=== PATIENT | male | born 1945 | race Caucasian/White ===

== ENCOUNTER 2016-07-24 10:46 | Inpatient (IN) | payer OTHER ==
[2016-06-13 10:24] VITALS: Ht 177.8 cm; Wt 104.0 kg
--- NOTE | 2016-06-13 11:07 | PAT Medication Instructions ---
Service Date Jun 13, 2016. Current Home Medication List Amlodipine (Norvasc), 5 MG PO QAM Ascorbic Acid (Vitamin C), 1,000 MG PO QAM Aspirin (Aspirin Tab-Chewable *), 1 TAB PO QAM Atorvastatin (Lipitor), 20 MG PO QAM Cholecalciferol (D 1000), 8,000 PO QAM Hydrochlorothiazide (Hctz), 25 MG PO QAM Multivitamin (Multivitamin), 1 TAB PO QAM Nutritional Supplements (Glucosamine Complex), 3 TAB PO QAM Psyllium (Metamucil Fiber), Unknown Dose PO UD PRN for QAM Medication Instructions For Your Scheduled Surgery - Hold the following medications 7-10 days prior to surgery: Nutritional Supplements (Glucosamine Complex), 3 TAB PO QAM - Hold the following medications the morning of surgery: Psyllium (Metamucil Fiber), Unknown Dose PO UD PRN for QAM Hydrochlorothiazide (Hctz), 25 MG PO QAM Multivitamin (Multivitamin), 1 TAB PO QAM Cholecalciferol (D 1000), 8,000 PO QAM Ascorbic Acid (Vitamin C), 1,000 MG PO QAM - Take the following medications the morning of surgery with a sip of water: Atorvastatin (Lipitor), 20 MG PO QAM Aspirin (Aspirin Tab-Chewable *), 1 TAB PO QAM Amlodipine (Norvasc), 5 MG PO QAM If you have any questions please call us at [phone] or [phone] ( Pat) or [phone]
--- NOTE | 2016-06-13 11:29 | DIAGNOSTIC IMAGING REPORT ---
CHEST 2 VIEWS ROUTINE CLINICAL HISTORY: PAT preoperative evaluation COMPARISON STUDY: 09/29/2013 FINDINGS: The bones soft tissues and hemidiaphragms are normal. The cardiomediastinal silhouette is normal. The lungs are clear. The pulmonary vasculature is normal. IMPRESSION: Negative chest. Electronically signed by: Gregory Donnelly M.D. 06/13/2016 11:27 AM Dictated Date/Time: 06/13/2016 11:26 AM
[2016-06-13 11:57] LABS: BASO % 0.7 %; BASO ABS # 0.04 K/uL (0-0.2); COMPLETE YES; EOS % 9.9 %; HEMATOCRIT 40.7 % (42-52); IG% 0.2 %; LYMPH % 30.9 %; LYMPH ABS # 1.75 K/uL (1.2-3.4); MEAN CELL VOLUME 89.5 fL (80-100); MEAN CORPUSCULAR HEMOGLOBIN 31.9 pg (25-34); MEAN CORPUSCULAR HGB CONC 35.6 g/dl (32-36); MEAN PLATELET VOLUME 9.8 fL (7.4-10.4); NEUT % 50.3 %; PLATELET COUNT 226 K/uL (130-400); RED BLOOD COUNT 4.55 M/uL (4.7-6.1); WHITE BLOOD COUNT 5.66 K/uL (4.8-10.8)
[2016-06-13 12:08] LABS: PROTHROMBIN TIME (PATIENT) 10.9 SECONDS (9.0-12.0)
[2016-06-13 12:57] LABS: BLOOD UREA NITROGEN 14 mg/dl (7-18); BUN/CREATININE RATIO 16.1 (10-20); C-REACTIVE PROTEIN < 0.29 mg/dl (0-0.29); CARBON DIOXIDE 29 mmol/L (21-32); CHLORIDE 102 mmol/L (98-107); CREATININE 0.85 mg/dl (0.60-1.40); GLUCOSE 110 mg/dl (70-99); POTASSIUM 3.7 mmol/L (3.5-5.1); SODIUM 137 mmol/L (136-145)
[2016-06-13 13:30] LABS: CALCIUM 9.1 mg/dl (8.5-10.1)
--- NOTE | 2016-07-20 19:50 | HISTORY & PHYSICAL EXAMINATION ---
DATE OF ADMISSION: 07/24/2016 CHIEF COMPLAINT: Bilateral knee pain, left side greater than right. HISTORY OF PRESENT ILLNESS: The patient is a 71-year-old gentleman, who is well known to me from a previous right hip replacement done in 2012. He has got a long history of bilateral knee pain and discomfort, left side greater than right. He has just been putting up with this over the years. He has been through extensive conservative treatment including various medicines and injections. This has become less successful over time. He has just been putting up with the pain. He has become more disabled by the pain. Both the knees hurt, the left side is a bit worse than the right; it is limiting his activities. He would like to proceed with a left knee replacement. PAST MEDICAL HISTORY: Significant for: 1. Hypertension. 2. Elevated cholesterol. 3. Osteoarthritis. 4. Basal cell skin cancer. PREVIOUS SURGICAL HISTORY: Right total hip replacement on 01/07/2013. ALLERGIES: None. CURRENT MEDICINES: Include: 1. Atorvastatin 20 mg a day. 2. Amlodipine 5 mg a day. 3. Hydrochlorothiazide SOCIAL HISTORY: A 71-year-old male patient, . He is from [place]. FAMILY HISTORY: Noncontributory. REVIEW OF SYSTEMS: Negative for diabetes, neurologic problems, vascular problems or bleeding disorders. He denies any chest pain or shortness of breath. No history of DVT or PE. PHYSICAL EXAMINATION: GENERAL: Reveals a healthy and pleasant elderly male. He looks to be in good health. HEENT: Benign. NECK: Supple. No lymphadenopathy. LUNGS: Clear to auscultation. HEART: Has a regular rate and rhythm. ABDOMEN: Soft, nontender and nondistended. EXTREMITIES: Grossly neurovascularly intact except as follows: Examination of the left knee reveals patient walks with a slight valgus alignment to his knee. Has small knee effusion. He has got slight flexion contracture of about 10 degrees. He can flex to 110. No instability. X-RAYS: X-rays of the left knee were reviewed. It shows advanced left knee DJD. He has got complete loss of his lateral joint space. He has got valgus alignment with subchondral sclerosis. He has got osteophytes in all 3 compartments. ASSESSMENT: A 71-year-old gentleman who is status post a right total hip replacement done 4 years ago, doing well with advanced bilateral knee degenerative joint disease, left side more symptomatic than the right. He has failed conservative treatment and would like to proceed with knee replacement. PLAN: We will take him to the operating room and do a left total knee replacement. The risks and benefits of this procedure were explained to the patient including but not limited to DVT, PE, , infection, neurological injury, neurovascular injury, bleeding problems, pain, limited range of motion, stiffness, failure to relieve symptoms, incomplete relief of symptoms, need for further surgery in the future, fracture, leg length inequality, nerve palsy, need for revision surgery, incomplete relief of symptoms, etc. The patient understands and desires to proceed. Informed consent was obtained. The patient had a preoperative workup. Chest x-ray was normal. Labs were normal. EKG was normal. He is planning to be discharged to home using [facility] home health program. TONIE
[~2016-07-24] VITALS: Ht 177.8 cm; Wt 104.0 kg
[2016-07-24] VITALS (8 sets, daily range): BP systolic 91–157; BP diastolic 56–92; PULSE 55–81; TEMP 36.4–36.9; O2SAT 96–100
[~2016-07-24 10:46] MED LIST: ACETAMINOPHEN 500 MG TAB PO SCH; AMLO-110 PO; ASCA500 PO; ASPCH81 PO; ATOR-22 PO; BUPIVACAINE 0.25% 30 ML VIAL ONE; BUPIVACAINE 0.5 % 5 MG/1 ML PF 10ML VIAL ONE; BUPIVACAINE LIPOSOME 266 MG, BUPIVACAINE/EPINEPHRINE INJ 50 ML, SODIUM CHLORIDE 0.9% PF... INFIL SCH; CEFAZOLIN 2000 MG/60 ML D5W 60 ML IV SCH; CHOL100041 PO; FAMOTIDINE 20 MG TAB PO SCH; GABAPENTIN 300 MG CAP PO SCH; HYDR25TA4 PO; LACTATED RINGER'S 1000ML 1,000 ML IV SCH; LACTATED RINGER'S 1000ML 500 ML IV ONE; LACTATED RINGER'S 1000ML IV SCH; METOCLOPRAMIDE HCL 10 MG TAB PO SCH; MULT-506 PO; NUTRTAB48 PO; PSYL58.636 PO; SCOPOLAMINE 1.5 MG TDSY TD SCH; TRANEXAMIC ACID INJ 1,000 MG in SODIUM CHLORIDE 0.9% 100ML 100 ML IV SCH
--- NOTE | 2016-07-24 11:11 | History & Physical Bridge Note ---
H&P Re-Evaluation Bridge Note: I have examined the patient, reviewed the History & Physical and in the interval since the performance of the History & Physical I have noted the following changes of clinical significance: No changes noted
[2016-07-24] MEDS ORDERED: ROPIVACAINE 0.5% 5 MG/ML 30 ML VIAL ONE (11:21)
[2016-07-24] MEDS ORDERED: MIDAZOLAM HCL 1 MG/ML 2ML VIAL ONE (12:24)
[2016-07-24] MEDS ORDERED: BUPIVACAINE/EPINEPHRINE 0.25% 1:200,000 30 ML VIAL ONE (12:49)
[2016-07-24] MEDS ORDERED: BUPIVACAINE LIPOSOME 1/3% 266 MG/20 ML VIAL INFIL ONE (12:49)
[2016-07-24] MEDS ORDERED: BACITRACIN 50000 UNIT VIAL ONE (12:49)
[2016-07-24] MEDS ORDERED: SODIUM CHLORIDE 0.9% PF 50 ML VIAL ONE (12:49)
[2016-07-24] MEDS ORDERED: ONDANSETRON INJ 2 MG/ML 2 ML VIAL IV PRN ×2 (13:30→15:00)
[2016-07-24] MEDS ORDERED: HYDROmorphone INJ 2 MG/ML SYR/VIAL IV PRN (13:30)
[2016-07-24] MEDS ORDERED: PHENYLEPHRINE 100MCG/ML 5ML SYR IV PRN (13:30)
[2016-07-24] MEDS ORDERED: EpHEDrine SULFATE INJ 50 MG/ML AMP IV PRN (13:30)
[2016-07-24] MEDS ORDERED: ATROPINE SULFATE 0.1 MG/ML 5ML SYR IV PRN (13:30)
--- NOTE | 2016-07-24 14:52 | [facility] Post Operative Brief Note ---
Immediate Operative Summary Operative Date July 24, 2016. Pre-Operative Diagnosis Advanced bilateral knee degenerative joint disease, left greater than right Post-Operative Diagnosis same as preop Procedure(s) Performed Left Total Knee Arthroplasty, cemented Surgeon Dr. Venkat Sotelo Coordinator Of Health Services Surgeon(s) Pacheco Stephen PA-C Estimated Blood Loss 50 cc Findings Left Knee DJD Fluids (cc crystalloids) 1600 cc Specimens A. Left Knee bone and tissue Drains None Anesthesia Spinal Complication(s) None Disposition Recovery Room / PACU
[2016-07-24] MEDS ORDERED: METOCLOPRAMIDE HCL INJ 5 MG/ML 2 ML VIAL IV PRN (15:00)
[2016-07-24] MEDS ORDERED: BISACODYL 10 MG SUPP PR PRN (15:00)
[2016-07-24] MEDS ORDERED: SILVER SULFADIAZINE 1% CR 50 GM JAR EXT PRN (15:00)
[2016-07-24] MEDS ORDERED: ZOLPIDEM TARTRATE 5 MG TAB PO PRN (15:00)
[2016-07-24] MEDS ORDERED: ALUMINUM/MAGNESIUM/SIMETH (MAALOX MAX) 30 ML UDC PO PRN (15:00)
[2016-07-24] MEDS ORDERED: MAGNESIUM HYDROXIDE SUSP 30 ML UDC PO PRN (15:00)
[2016-07-24] MEDS ORDERED: TAMSULOSIN HCL 0.4 MG CAP PO PRN (15:00)
--- NOTE | 2016-07-24 15:15 | DIAGNOSTIC IMAGING REPORT ---
LEFT KNEE 2 VIEWS History: Left total knee arthroplasty. Degenerative arthritis. Postop. FINDINGS: The patient is status post a left total knee arthroplasty. The hardware is intact. No fracture or dislocation. Skin jeramie are in place. IMPRESSION: Left total knee arthroplasty. No evidence for hardware complication. Electronically signed by: Felipe Bocanegra M.D. 07/24/2016 3:14 PM Dictated Date/Time: 07/24/2016 3:13 PM
[2016-07-24] MEDS ORDERED: LIDOCAINE HCL 2% 2 ML VIAL (20MG/ML) ONE (15:40)
[2016-07-24] MEDS ORDERED: PROPOFOL IV EMULSION 10 MG/ML 20 ML VIAL IV ONE (15:40)
[2016-07-24] MEDS ORDERED: FENTANYL CITRATE INJ 50 MCG/1 ML 2 ML VIAL ONE (15:40)
[2016-07-24] MEDS: CHECK SCOPOLAMINE PATCH PLACEMENT SCH (16:25)
--- NOTE | 2016-07-24 16:44 | Anesthesiology Progress Note ---
Anesthesia Post Op Note Date & Time July 24, 2016 at 16:44 Vital Signs Pain Intensity: 0 Vital Signs Past 12 Hours Date Time Temp Pulse Resp B/P Pulse Ox O2 Delivery O2 Flow Rate FiO2 07/24/16 16:00 58 16 111/66 100 Nasal Cannula 2 07/24/16 15:45 58 16 123/72 98 Nasal Cannula 2 07/24/16 15:35 36.6 60 16 124/79 98 Nasal Cannula 2 07/24/16 15:25 72 18 120/71 100 Nasal Cannula 2 07/24/16 15:15 71 18 123/66 100 Nasal Cannula 2 07/24/16 15:05 36.5 69 18 119/69 98 Nasal Cannula 2 07/24/16 14:55 36.5 76 16 119/68 98 Mask 10 07/24/16 11:28 99 Room Air 07/24/16 11:25 36.9 81 18 157/92 Notes Mental Status: alert / awake / arousable, participated in evaluation Pt Amnestic to Procedure: Yes Nausea / Vomiting: adequately controlled Pain: adequately controlled Airway Patency, RR, SpO2: stable & adequate BP & HR: stable & adequate Hydration State: stable & adequate Anesthetic Complications: no major complications apparent
[2016-07-24] MEDS: D5W AND 1/2NSS + 20MEQ KCL 1,000 ML IV SCH (17:15)
[2016-07-24] MEDS: KETOROLAC TROMETHAMINE 15 MG/ML VIAL IV. SCH (17:44)
[2016-07-24] MEDS: FERROUS GLUCONATE 324 MG TAB PO SCH (17:44)
--- NOTE | 2016-07-24 18:36 | OPERATIVE REPORT ---
DATE OF OPERATION: 07/24/2016 SURGEON: Venkat Sotelo MD MATE FIRST: AGUSTÍN Johnson PREOPERATIVE DIAGNOSIS: Left knee degenerative joint disease. POSTOPERATIVE DIAGNOSIS: Same. PROCEDURE PERFORMED: Left cemented posterior stabilized total knee arthroplasty. COMPLICATIONS: None. ESTIMATED BLOOD LOSS: 50 mL. FLUID REPLACEMENT: 1600 mL crystalloid fluid replacement. ANESTHESIA: Spinal with adductor canal block. DRAINS: None. SPECIMENS: Left knee sent for pathology. TOURNIQUET TIME: 59 minutes at 300 mmHg. OPERATIVE INDICATIONS: The patient is a 71-year-old very active gentleman who has had a long history of knee problems. He underwent a right hip replacement several years ago and has done well from this. He developed increased pain and discomfort in both knees, left side more so than the right. He failed conservative care and it was elected to proceed with left total knee arthroplasty. OPERATIVE FINDINGS: Operative findings revealed advanced left knee DJD. He had grade 4 [id number] disease in all 3 compartments, most severe in the lateral side. He had eburnation of the lateral femoral condyle and lateral tibial plateau. He had more spotty grade 4 changes in the medial side as well as the patellofemoral joint. He had a valgus deformity to his knee. OPERATIVE IMPLANTS: Operative implants consisted of: 1. Biomet Vanguard size 75 left posterior stabilized femoral component. 2. Biomet size 79 tibial tray. 3. A 10-mm posterior stabilized polyethylene insert. 4. A 34 x 8.5 All-Poly patella. OPERATIVE PROCEDURE: The patient was taken to the operating room, identified and placed on the operating table in supine position. All contact areas were appropriately padded. IV antibiotics were provided by the anesthesia team. A spinal anesthetic and adductor canal block had been provided in the holding area. Yañez catheter was placed in sterile fashion. The left thigh tourniquet was then placed and left lower extremity was then prepped and draped in the usual sterile fashion. Left leg was elevated and exsanguinated with Esmarch and tourniquet was placed at 300 mmHg. An anterior approach to the left knee was then performed through a longitudinal incision centered over the patella. Sharp dissection was carried out through the subcutaneous tissues down to the level of the extensor mechanism. A medial parapatellar arthrotomy incision was made. Subperiosteal dissection was carried out medially dissected from beneath the patellar tendon. The lateral patellofemoral ligament was released. The patella was everted and the knee was flexed. The osteophytes were taken off the distal femur. The ACL and PCL were then released from the distal femur and the tibia subluxated anteriorly. The external tibial alignment jig was then placed in the anterior face of the tibia and adjusted 12 mm medially. Proximal tibial cut was made to remove about 3-4 mm of bone from the medial side. The tibia was then sized to a size 79. Some osteophytes were taken off medial and posteromedially. Attention was then drawn to the femur. The distal femur was entered with a sharp drill. Intramedullary canal was suctioned. A left 5 degree valgus cutting guide was placed. Distal femoral cutting block was pinned in place. Distal femoral cut was made to take an additional 3 mm of bone off the distal femur. After cutting this, I just starting to get down to the base of the trochlear notch, so I elected to take 2 additional millimeters of bone from the distal femur. The patient also had a preoperative flexion contracture and I felt this would help that as well. The femur was then sized to a size 75. We did downsize this just slightly. The AP cutting block was pinned parallel to the epicondylar axis, which was 6 degrees of external rotation. The anterior cut, anterior chamfer, posterior cut, posterior chamfer cuts were made. Box cutting guide was placed and adjusted slightly lateral. The box cut was made. The knee was flexed. The remnants of the medial and lateral menisci were excised. The osteophytes were taken off the posterior aspect of the femur. A trial femoral component was placed. Tibial tray was pinned in maximum external rotation and the drill and stem punch were used to create defect in proximal tibia for the tibial tray. The knee was then trialed and the 10 mm insert fit most appropriately. Attention was then drawn to the patella. The patella was cleaned of all soft tissues. Patellar thickness measured 23 mm in thickness and was cut down to 14. It was sized to a size 34 patella. Lug holes were drilled for a 34 patella. Lateral osteophyte was removed. Patella button was placed. Knee was taken through range of motion and the patella tracked nicely with no thumbs test. Attention was then drawn toward placement of permanent components. All trial components were removed. A bone plug was placed in the distal femur to limit blood loss. A double batch of Palacos G cement was mixed. A left size 75 posterior stabilized femoral component, size 79 tibial tray, 10 mm posterior stabilized polyethylene insert, and a 34 x 8.5 All-Poly patella were then cemented in place. The knee was brought out into full extension until cement hardened. A final cement check was then performed. Pericapsular tissues were injected with a total of 100 mL of a combination of 20 mL of Exparel, 30 mL of normal saline, and 50 mL of 0.25% Marcaine with epinephrine. The patient did receive 1 gram of tranexamic acid. The tourniquet was then let down for final tourniquet time of 59 minutes. Hemostasis was assured using electrocautery. The wound was once again irrigated. The extensor mechanism was then closed with a combination of #1 PDS suture and #1 Vicryl suture in a [id number] fashion. The extensor mechanism was checked and found to be intact. Subcutaneous tissues were then closed with 2-0 Dexon suture in a buried interrupted fashion. Skin was closed with skin jeramie. The leg was then cleaned and dried and a sterile dressing of Xeroform, 4 x 4, sterile cast padding and Hugo bandage were applied. The patient then transferred to the recovery room in stable condition. The patient tolerated the procedure well with no complications. All needle and sponge counts were correct at the end of the operation. I attest to the content of the Intraoperative Record and any orders documented therein. Any exceptions are noted below. TONIE
[2016-07-24] MEDS ORDERED: TRANEXAMIC ACID INJ 1,000 MG in SODIUM CHLORIDE 0.9% 100ML 100 ML IV SCH (21:00)
[2016-07-24] MEDS: CEFAZOLIN IV 2,000 MG in DEXTROSE 5% 50ML 50 ML IV SCH (21:21)
[2016-07-24] MEDS: DOCUSATE SODIUM 100 MG CAP PO SCH (21:25)
[2016-07-24] MEDS: ASPIRIN 325 MG ECTAB PO SCH (21:25)
[2016-07-24] MEDS: ACETAMINOPHEN 500 MG TAB PO SCH (21:59)
[2016-07-24] MEDS: OXYCODONE HCL IR 5 MG TAB (IMMEDIATE RELEASE) PO PRN (22:01)
[2016-07-25 03:19] VITALS: BP 94/60; PULSE 60; TEMP 36.2; O2SAT 98
[2016-07-25] MEDS: CEFAZOLIN IV 2,000 MG in DEXTROSE 5% 50ML 50 ML IV SCH (05:07)
[2016-07-25] MEDS: ACETAMINOPHEN 500 MG TAB PO SCH ×3 (05:08→21:53)
[2016-07-25] MEDS: KETOROLAC TROMETHAMINE 15 MG/ML VIAL IV. SCH ×5 (05:09→23:39)
[2016-07-25 06:32] LABS: HEMATOCRIT 35.5 % (42-52); MEAN CELL VOLUME 94.2 fL (80-100); MEAN CORPUSCULAR HEMOGLOBIN 31.8 pg (25-34); MEAN CORPUSCULAR HGB CONC 33.8 g/dl (32-36); MEAN PLATELET VOLUME 9.2 fL (7.4-10.4); PLATELET COUNT 202 K/uL (130-400); RED BLOOD COUNT 3.77 M/uL (4.7-6.1); WHITE BLOOD COUNT 10.52 K/uL (4.8-10.8)
[2016-07-25 07:03] LABS: BUN/CREATININE RATIO 16.4 (10-20); CALCIUM 7.8 mg/dl (8.5-10.1); CREATININE 0.89 mg/dl (0.60-1.40); POTASSIUM 4.7 mmol/L (3.5-5.1)
[2016-07-25] MEDS ORDERED: ASPEC325 PO (07:16)
[2016-07-25] MEDS ORDERED: ACET-1138 PO (07:16)
[2016-07-25] MEDS ORDERED: RXC5 PO (07:16)
--- NOTE | 2016-07-25 07:17 | Discharge Instructions ---
Discharge Instructions Date of Service July 25, 2016. Admission Reason for Admission: Left Knee Degenerative Joint Disease Discharge Discharge Diagnosis / Problem: Left Knee REplacement Discharge Goals Goal(s): Decrease discomfort, Improve function, Increase independence, Improve disease control, Therapeutic intervention Activity Recommendations Activity Limitations: per Instructions/Follow-up section Weightbearing Status: Left weightbearing . Instructions / Follow-Up Instructions / Follow-Up ACTIVITY RECOMMENDATIONS: Physical Therapy: * You will go to physical therapy three times each week for four to six weeks after your surgery in order to regain your knee range of motion and to retrain your knee to work properly. * It is just as important to make sure you are getting your knee perfectly straight as it is to regain your knee bend. * Taking a pain pill an hour before therapy can help you have a more productive and comfortable therapy session. Home Exercise: * You were shown a series of exercises (heel props, heel slides, etc.) in the hospital. Do these exercises three to four times each day including the exercises you were shown in physical therapy. Walking: * Get up and walk several times each day. For the first four weeks, try not to stand or walk for more than one hour at a time. If you do stand or walk for more than one hour, you will not hurt anything, but your knee and leg will likely swell. * As you feel comfortable, you may change from the walker or crutches to a cane and then to independent walking. MEDICATIONS: New Medicine: * You will likely be taking one or more of these medications: 1. OXYCODONE - A quick and shorter-acting pain medication. Take one to two tablets every four to six hours to lessen your pain. 2. Aspirin - Thins your blood to lessen the chance of forming a blood clot. * The most common side effects of pain medicine and iron are nausea and constipation. If nausea or constipation is too much of a problem or if you have any questions about your new medicines or doses, call [facility] at [phone]. We will try to help you manage these issues. VERY IMPORTANT TO READ AND REVIEW" Pain: * The immediate post-operative period after knee replacement surgery is often quite painful. * You are given a prescription for pain medicine. You should take it, as directed, when you need it, especially before physical therapy and before going to bed. Pain that interferes with sleep is very common and can last several months. * You will likely need pain medicine for the first four to six weeks. It will not stop all of the pain. The pain will lessen and as you feel better, you may change to milder pain medicine such as Tylenol. * The most common side effects of pain medicine are nausea and constipation, so don't take more than you need. SPECIAL CARE INSTRUCTIONS: TEDs/Elastic Stockings: * The white elastic stockings help limit swelling and prevent blood clots from forming in your legs. The more you wear them, the more they work. * Wear them for six weeks after knee replacement surgery and four weeks after partial knee replacement. Prevention of Infection: * Take antibiotics one hour before any dental cleaning, dental work, urological procedure, gastrointestinal procedure or any invasive surgery in order to prevent your new joint from getting infected. * You may get the antibiotics from the doctor performing the procedure or you may call our office at before and we will call in a prescription to the pharmacy of your choice. Things to Watch For: * Drainage from the incision site that occurs more than one week after your surgery. * Severely increased knee/leg pain or swelling. * Increased redness at the incision site. * Fever above 102 degrees Fahrenheit. * Unusual chest pain or shortness of breath. * Unusual pain or burning with urination. Call [facility] at with any of the above problems or if you have any questions about your medicines or recovery. FOLLOW UP VISIT: Make an appointment to see your doctor for approximately two weeks after surgery for a progress check and staple removal by calling the office at . Current Hospital Diet Patient's current hospital diet: Regular Diet Discharge Diet Recommended Diet: Regular Diet Procedures Procedures Performed: Left Total Knee Arthroplasty, cemented Pending Studies Studies pending at discharge: no Medical Emergencies . Who to Call and When: Medical Emergencies: If at any time you feel your situation is an emergency, please call [phone] immediately. . Non-Emergent Contact Non-Emergency issues call your: Surgeon . "Provider Documentation" section prepared by Venkat Sotelo. . VTE Core Measure Inpt VTE Proph given/why not?: Other Anticoagulation, T.E.D. Stockings, SCD's
[2016-07-25 07:35] VITALS: BP 118/78; PULSE 68; TEMP 36.5; O2SAT 99
--- NOTE | 2016-07-25 07:49 | PROGRESS NOTE ---
DATE: 07/25/2016 DATE: 07/25/2016. SUBJECTIVE: A 71-year-old gentleman postop day #1 from a left knee replacement. He is doing well. He says he has taken 1 pain pill overnight and that is it. No chest pain or shortness of breath. Not feeling dizzy or lightheaded. OBJECTIVE: VITAL SIGNS: Temperature is 36.2. Vital signs stable. PHYSICAL EXAMINATION: GENERAL: Reveals a healthy, pleasant, middle-aged male. He is lying in bed, looks pretty comfortable. EXTREMITIES: Examination of the left leg reveals the leg to be well aligned. Dressing is clean, dry, and intact. He can dorsiflex and plantarflex his foot appropriately. He is neurologically intact. LABORATORY DATA: Hemoglobin 12.0. Hematocrit 35.5. Electrolytes are pending. ASSESSMENT: A 71-year-old gentleman postop day 1 from left knee replacement, doing pretty well. Pain is controlled. He is neurologically intact. PLAN: 1. DVT prophylaxis including thigh-high TEDs, SCDs, and aspirin twice a day. 2. PT/OT. Weight bear as tolerated. Left total knee protocol. 3. Pain control. Doing well with current pain regimen. 4. Disposition: He is planning to be discharged home with some home once adequately recovered.
[2016-07-25] MEDS: CHECK SCOPOLAMINE PATCH PLACEMENT SCH ×4 (08:08→23:39)
--- NOTE | 2016-07-25 08:15 | Anesthesiology Progress Note ---
Anesthesia Post Op Note Date & Time July 25, 2016 at 08:15 Vital Signs Pain Intensity: 5.0 Vital Signs Past 12 Hours Date Time Temp Pulse Resp B/P Pulse Ox O2 Delivery O2 Flow Rate FiO2 07/25/16 07:35 36.5 68 19 118/78 99 Room Air 07/25/16 03:19 36.2 60 18 94/60 98 Room Air 07/24/16 23:57 Room Air 07/24/16 23:20 36.5 55 18 91/56 96 Room Air 98/61 Notes Mental Status: alert / awake / arousable, participated in evaluation Pt Amnestic to Procedure: Yes Nausea / Vomiting: adequately controlled Pain: adequately controlled Airway Patency, RR, SpO2: stable & adequate BP & HR: stable & adequate Hydration State: stable & adequate Neuraxial Anesthesia: was administered, sensory block resolved Anesthetic Complications: no major complications apparent
[2016-07-25] MEDS: D5W AND 1/2NSS + 20MEQ KCL 1,000 ML IV SCH ×2 (08:33)
[2016-07-25] MEDS: OXYCODONE HCL IR 5 MG TAB (IMMEDIATE RELEASE) PO PRN ×4 (08:34→21:54)
[2016-07-25] MEDS: ATORVASTATIN 20 MG TAB PO SCH (08:34)
[2016-07-25] MEDS: PANTOprazole SOD 40 MG TAB PO SCH (08:34)
[2016-07-25] MEDS: GLUCOSAMINE SULFATE 500 MG CAP PO SCH (08:35)
[2016-07-25] MEDS: DOCUSATE SODIUM 100 MG CAP PO SCH ×2 (08:35→21:52)
[2016-07-25] MEDS: CHOLECALCIFEROL 1000 INTER.UNIT TAB PO SCH (08:35)
[2016-07-25] MEDS: FERROUS GLUCONATE 324 MG TAB PO SCH ×3 (08:35→17:45)
[2016-07-25] MEDS: ASPIRIN 325 MG ECTAB PO SCH ×2 (08:35→21:52)
[2016-07-25] MEDS: ASCORBIC ACID 500 MG TAB PO SCH (08:35)
[2016-07-25] MEDS: AMLODIPINE BESYLATE 5 MG TAB PO SCH (08:36)
[2016-07-25] MEDS: HYDROCHLOROTHIAZIDE 25 MG TAB PO SCH (08:36)
[2016-07-25] MEDS: MULTIVITAMIN TAB PO SCH (08:36)
[2016-07-25] MEDS ORDERED: MULTIVITAMIN TAB PO SCH (09:00)
[2016-07-25 10:51] VITALS: BP 114/68; PULSE 65; TEMP 36.8; O2SAT 98
[2016-07-25 15:26] VITALS: BP 127/78; PULSE 72; TEMP 36.6; O2SAT 97
[2016-07-25 23:20] VITALS: BP 118/72; PULSE 75; TEMP 36.7; O2SAT 92
[2016-07-26] MEDS: KETOROLAC TROMETHAMINE 15 MG/ML VIAL IV. SCH ×2 (05:14→11:56)
[2016-07-26] MEDS: ACETAMINOPHEN 500 MG TAB PO SCH (05:15)
[2016-07-26 07:04] VITALS: BP 123/70; PULSE 73; TEMP 36.6; O2SAT 98
--- NOTE | 2016-07-26 07:57 | PROGRESS NOTE ---
DATE: 07/26/2016 SUBJECTIVE: A 71-year-old gentleman postop day #2 from a left knee replacement. He is doing pretty well. He was pretty painful with therapy yesterday. Denies any chest pain or shortness of breath. Not feeling dizzy or lightheaded. OBJECTIVE: VITAL SIGNS: Temperature 36.6. Vital signs stable. GENERAL: Physical examination reveals a healthy, pleasant, middle-aged male. He is sitting up in bed and looks pretty comfortable. LUNGS: Clear to auscultation. HEART: Regular rate and rhythm. ABDOMEN: Soft, nontender, and nondistended. EXTREMITIES: Grossly neurovascularly intact except as follows: Examination of the left lower extremity reveals the dressing to be clean, dry and intact. Leg is well aligned. He can dorsiflex and plantarflex his foot appropriately. He is neurologically intact. ASSESSMENT: A 71-year-old gentleman postop day #2 from a left knee replacement, doing pretty well. Pretty painful with therapy, but doing well otherwise. PLAN: 1. DVT prophylaxis including thigh-high TEDs, SCDs, and aspirin twice a day. 2. PT/OT. Weightbearing as tolerated. Left total knee protocol. 3. Pain control. Doing pretty well with current pain regimen. We will have to increase his dose of meds before therapy. 4. Disposition: Plan to discharge to home with some home health later today.
[2016-07-26] MEDS: FERROUS GLUCONATE 324 MG TAB PO SCH (08:32)
[2016-07-26] MEDS: ASPIRIN 325 MG ECTAB PO SCH (08:33)
[2016-07-26] MEDS: DOCUSATE SODIUM 100 MG CAP PO SCH (08:33)
[2016-07-26] MEDS: HYDROCHLOROTHIAZIDE 25 MG TAB PO SCH (08:34)
[2016-07-26] MEDS: GLUCOSAMINE SULFATE 500 MG CAP PO SCH (08:34)
[2016-07-26] MEDS: ATORVASTATIN 20 MG TAB PO SCH (08:34)
[2016-07-26] MEDS: MULTIVITAMIN TAB PO SCH (08:34)
[2016-07-26] MEDS: PANTOprazole SOD 40 MG TAB PO SCH (08:35)
[2016-07-26] MEDS: ASCORBIC ACID 500 MG TAB PO SCH (08:35)
[2016-07-26] MEDS: AMLODIPINE BESYLATE 5 MG TAB PO SCH (08:35)
[2016-07-26] MEDS: CHOLECALCIFEROL 1000 INTER.UNIT TAB PO SCH (08:36)
[2016-07-26] MEDS: OXYCODONE HCL IR 5 MG TAB (IMMEDIATE RELEASE) PO PRN (08:37)
[2016-07-26 11:44] VITALS: BP 123/70; PULSE 73; TEMP 36.6; O2SAT 98
--- NOTE | 2016-07-30 11:21 | DISCHARGE SUMMARY ---
ADMITTING PHYSICIAN AND SURGEON: Dr. Sotelo. ADMITTING DIAGNOSIS: Left knee degenerative joint disease. SURGERY PERFORMED: Left total knee arthroplasty. SECONDARY DIAGNOSES: Hypertension, elevated cholesterol, osteoarthritis, basal cell skin cancer. CONSULTS: None obtained. HISTORY AND PHYSICAL EXAMINATION: Well documented in the patient's chart. HOSPITAL COURSE: The patient was admitted on 07/24/2016 underwent total knee arthroplasty, tolerated the procedure well. There were no complications. He was transferred to the PACU postoperatively and later to the orthopedic floor for further care. He was given Ancef for antibiotic prophylaxis, LV stockings, SCDs and aspirin for DVT prophylaxis. Hemoglobin, hematocrit and vital signs were monitored during his hospital stay and remained stable, did not require any blood transfusions. There were no complications. By postoperative day 2, he was tolerating a general diet. Pain was controlled with oral pain medicine. He was participating in physical therapy and had no signs or symptoms of deep vein thrombosis. On postop day 2, he was discharged home and set up with home health services, given printed discharge instructions including prescriptions for extra strength Tylenol, aspirin 325 mg b.i.d., oxycodone, continue his home medications with the exception of his home dose of aspirin which was changed. Continue physical therapy, weightbearing as tolerated. LV stockings. Follow up in 10-12 days or sooner if there are any problems or concerns.
== END 2016-07-26 12:30 | disposition home health service (06) | DRG 470 ==
LOC: ENRESERVTM → ENRESERVDT → C.ACU 10:46 → C.3E 11:10
PROVIDERS: ADMIT Orthopaedic Surgery Sports Medicine; ATTEND Orthopaedic Surgery Sports Medicine
PROC: 0SRD0J9 Replacement of Left Knee Joint with Synthetic Substitute, Cemented, Open Approach (ICD-10-PCS; principal; 2016-07-24 13:00)
DX: M17.12 Unilateral primary osteoarthritis, left knee (principal); I10 Essential (primary) hypertension; Z79.899 Other long term (current) drug therapy; Z96.641 Presence of right artificial hip joint

== ENCOUNTER 2018-12-20 10:10 | Observation (INO) ==
[2018-12-09 09:25] LABS: Basophils # (auto) 0.03 K/uL (0-0.2); Basophils % (auto) 0.6 %; Eosinophils # (auto) 0.51 K/uL (0-0.5); Eosinophils % (auto) 9.4 %; Hematocrit (blood only) 40.7 % (42-52); Hemoglobin 13.9 g/dL (14.0-18.0); Immature Granulocytes # (auto) 0.01 K/uL (0.00-0.02); Immature Granulocytes % (auto) 0.2 %; Lymphocytes # (auto) 1.63 K/uL (1.2-3.4); Lymphocytes % (auto) 29.9 %; Mean Corpuscular Hemoglobin 31.8 pg (25-34); Mean Corpuscular Hgb Conc 34.2 g/dL (32-36); Mean Corpuscular Volume 93.1 fL (80-100); Mean Platelet Volume 10.1 fL (7.4-10.4); Monocytes # (auto) 0.48 K/uL (0.11-0.59); Monocytes % (auto) 8.8 %; Neutrophils # (auto) 2.79 K/uL (1.4-6.5); Neutrophils % (auto) 51.1 %; Platelet Count 221 K/uL (130-400); RDW Coefficient of Variation 12.6 % (11.5-14.5); RDW Standard Deviation 42.6 fL (36.4-46.3); Red Blood Count 4.37 M/uL (4.7-6.1); White Blood Count 5.45 K/uL (4.8-10.8)
[2018-12-09 09:37] LABS: BUN Creatinine Ratio 16.3 (10-20); Blood Urea Nitrogen 13 mg/dl (7-18); Calcium 8.9 mg/dl (8.5-10.1); Carbon Dioxide 28 mmol/L (21-32); Chloride 104 mmol/L (98-107); Est GFR (African American) 101.7; Est GFR (Non-African American) 87.7; Glucose 104 mg/dl (70-99); Potassium 3.8 mmol/L (3.5-5.1); Sodium 138 mmol/L (136-145)
[2018-12-09 09:38] LABS: Partial Thromboplastin Time 25.8 Seconds (21.0-31.0); Prothrombin Time 10.5 Seconds (9.0-12.0)
--- NOTE | 2018-12-09 15:48 | Anesthesiology Consultation ---
Date of Service December 09, 2018 Assessment & Plan Chart Review Chart Review: Acceptable Risk for Surgery and Patient NOT seen in Pre Admission Testing Consults Requested none ASA ASA3 Proposed Anesthesia Anesthesia Type: General Anesthesia Line Insertion: Arterial line History Surgery Operation Date: 12/20/18 12:10 Proposed Procedures p L4-L5, L5-S1 Laminectomy, Possible Fusion - Loco Pierce DO Height/Weight Height: 5 ft 9 in Weight: 99.79 kg Allergies Allergy/AdvReac Type Severity Reaction Status Date / Time codeine AdvReac Dizziness Verified 12/09/18 13:58 Medications Home Medications Medication Instructions Recorded Confirmed Last Taken amlodipine 5 mg PO QAM 12/09/18 12/09/18 Unknown ascorbic acid (vitamin C) [Vitamin 500 mg PO QAM 12/09/18 12/09/18 Unknown C] aspirin 81 mg PO QAM 12/09/18 12/09/18 Unknown atorvastatin 20 mg PO QAM 12/09/18 12/09/18 Unknown cholecalciferol (vitamin D3) 8,000 unit PO QAM 12/09/18 12/09/18 Unknown [Vitamin D3] diclofenac sodium 75 mg PO BID 12/09/18 12/09/18 Unknown [id number] borate 1 tab PO QAM 12/09/18 12/09/18 Unknown [[facility]] hydrochlorothiazide 25 mg PO QAM 12/09/18 12/09/18 Unknown multivitamin 1 tab PO QAM 12/09/18 12/09/18 Unknown tizanidine [Zanaflex] 2 mg PO Q8H PRN 12/09/18 12/09/18 Unknown Past Medical History Medical History Degenerative disc disease History of basal cell cancer Hyperlipidemia Hypertension Osteoarthritis Exercise / Class Metabolic Activity III < 4 Walking/Shop/Light housework Past Family History Family History Aunt Family hx of colon cancer Grandfather (Paternal) Family hx of colon cancer Uncle Family hx of colon cancer Father Family hx of colon cancer Past Surgical History Surgical History History of basal cell carcinoma (BCC) excision History of colonoscopy History of left knee replacement History of right hip replacement History of tonsillectomy Past Anesthesia History No Hx of Anesthesia Complications and No Family Hx of Anesthesia Complications History of PONV No Hx of PONV and No Hx of Motion Sickness Social History Smoking Status: Never smoker Do You Dip or Chew Tobacco: No Hx Alcohol Use: Yes Alcohol type: beer and wine alcohol intake frequency: a few times a week Hx Substance Use: No substance use type: does not use Testing Laboratory Results 12/09/18 07:29 12/09/18 07:29 PT 10.5 Seconds (9.0-12.0) 12/09/18 07:29 INR 1.0 (0.9-1.1) 12/09/18 07:29 APTT 25.8 Seconds (21.0-31.0) 12/09/18 07:29 Electrocardiogram Date: 12/09/18 Findings: + NSR @ (at 63) Chest X-Ray Date: 12/09/18 Findings: + NAD
--- NOTE | 2018-12-17 09:39 | History and Physical Report ---
DATE OF ADMISSION: 12/17/2018 CHIEF COMPLAINT: Back pain, leg pain, weakness and falling. HISTORY OF PRESENT ILLNESS: Mr. Mead is delightful. He is 73. He has profound stenosis, large herniation of the spine leading to significant pressure and weakness, particularly L4-L5 and L5-S1. He has no associated fevers, sweats, chills, or bowel or bladder compromise. He has had ongoing difficulty for months, it is worsening over time. He is actually not standing well. PAST MEDICAL HISTORY: High cholesterol, hypertension, skin carcinoma. PAST SURGICAL HISTORY: Hip replacement. SOCIAL HISTORY: . Minimal alcohol. Minimal tobacco. Active lifestyle. REVIEW OF SYSTEMS: Twelve systems reviewed, is negative for fevers, sweats, chills. Ears, nose, and throat negative. No chest pain, palpitations, asthma, wheezing, shortness of breath. No nausea, vomiting. No urgency, frequency. No memory loss, confusion. He has joint pain, weakness and muscle pain. OBJECTIVE: GENERAL: He is 5 feet 10 inches. He is 225 pounds. He is in distress. VITAL SIGNS: Blood pressure 130/80, pulse 80, respirations 16. ABDOMEN: Soft, nontender, good bowel sounds. MUSCULOSKELETAL: He has weakness with dorsiflexion and plantarflexion, gait abnormality and loss of sensation, loss of proprioception strength. PLAN: Includes a laminectomy L4-S1, possible fusion.
[~2018-12-20 10:10] MED LIST changes: -ACETAMINOPHEN 500 MG TAB PO SCH; -AMLO-110 PO; -ASCA500 PO; -ASPCH81 PO; -ATOR-22 PO; -BUPIVACAINE 0.25% 30 ML VIAL ONE; -BUPIVACAINE 0.5 % 5 MG/1 ML PF 10ML VIAL ONE; -BUPIVACAINE LIPOSOME 266 MG, BUPIVACAINE/EPINEPHRINE INJ 50 ML, SODIUM CHLORIDE 0.9% PF... INFIL SCH; -CEFAZOLIN 2000 MG/60 ML D5W 60 ML IV SCH; +CEFAZOLIN 2000MG 2,000 MG/15 ML SYR IV SCH; -CHOL100041 PO; -FAMOTIDINE 20 MG TAB PO SCH; -GABAPENTIN 300 MG CAP PO SCH; -HYDR25TA4 PO; -LACTATED RINGER'S 1000ML 1,000 ML IV SCH; -LACTATED RINGER'S 1000ML 500 ML IV ONE; -LACTATED RINGER'S 1000ML IV SCH; +LR 15ML/HR IV SCH; -METOCLOPRAMIDE HCL 10 MG TAB PO SCH; -MULT-506 PO; -NUTRTAB48 PO; -PSYL58.636 PO; -SCOPOLAMINE 1.5 MG TDSY TD SCH; +SODIUM CHLORIDE 0.9% 1,000 ML IV SCH; -TRANEXAMIC ACID INJ 1,000 MG in SODIUM CHLORIDE 0.9% 100ML 100 ML IV SCH
[2018-12-20] MEDS ORDERED: MIDAZOLAM HCL 1 MG/ML 2ML VIAL ONE (11:09)
[2018-12-20] MEDS ORDERED: PROPOFOL IV EMULSION 10 MG/ML 20 ML VIAL IV ONE (11:09)
[2018-12-20] MEDS ORDERED: ROCURONIUM BROMIDE 10 MG/ML 5 ML VIAL ONE ×2 (11:09→12:30)
[2018-12-20] MEDS ORDERED: LIDOCAINE HCL 2% 2 ML VIAL/AMP(20MG/ML) INFIL ONE (11:09)
[2018-12-20] MEDS ORDERED: NEOSTIGMINE METHYLSULFATE 5 MG/5 ML SYR ONE (11:09)
[2018-12-20] MEDS ORDERED: GLYCOPYRROLATE 0.2 MG/ML VIAL ONE (11:09)
[2018-12-20] MEDS ORDERED: fentaNYL citrate 100 MCG/2 ML VIAL ONE (11:09)
[2018-12-20] MEDS ORDERED: ONDANSETRON INJ 2 MG/ML 2 ML VIAL ONE (11:09)
[2018-12-20] MEDS ORDERED: HYDROmorphone INJ 2 MG/ML SYR/VIAL IV PRN (13:09)
[2018-12-20] MEDS ORDERED: ATROPINE SULFATE 0.1 MG/ML 10ML SYR IV PRN (13:09)
[2018-12-20] MEDS ORDERED: fentaNYL citrate 100 MCG/2 ML VIAL IV PRN (13:09)
[2018-12-20] MEDS ORDERED: ONDANSETRON INJ 2 MG/ML 2 ML VIAL IV PRN ×2 (13:09→17:12)
[2018-12-20] MEDS ORDERED: ePHEDrine sulfate 50 MG/ML AMP IV PRN (13:09)
[2018-12-20] MEDS ORDERED: BACITRACIN INJ 50,000 UNIT VIAL ONE (13:58)
[2018-12-20] MEDS ORDERED: VANCOMYCIN HCL 1000MG/20ML VIAL ONE (13:58)
[2018-12-20] MEDS ORDERED: THROMBIN FOR SOLN 20000 UNIT KIT ONE (13:58)
[2018-12-20] MEDS ORDERED: GELATIN SPONGE SZ 100 ONE (13:58)
[2018-12-20] MEDS ORDERED: BUPIVACAINE/EPINEPHRINE 0.5% MPF 1:200,000 30 ML VIAL ONE (13:58)
--- NOTE | 2018-12-20 14:20 | History & Physical Bridge Note ---
Date of Service December 20, 2018 History & Physical Bridge Note I have examined the patient, reviewed the History & Physical and in the interval since the performance of the History & Physical I have noted the following changes of clinical significance: no changes noted
[2018-12-20] MEDS ORDERED: HYDROmorphone INJ 2 MG/ML SYR/VIAL ONE (14:46)
[2018-12-20] MEDS ORDERED: DEXAMETHASONE SOD INJ 4 MG/ML VIAL ONE (15:30)
[2018-12-20] MEDS ORDERED: ePHEDrine sulfate 50 MG/ML SYR ONE (15:50)
--- NOTE | 2018-12-20 16:16 | Post Operative Brief Note ---
PG Immediate Post Op with CF Date of Surgery December 20, 2018 Pre & Post Diagnosis Operation Date: 12/20/18 12:10 Pre-Op Diagnosis: Disc Herniation, Stenosis, Spondylolisthesis Post-Op Diagnosis: Disc Herniation, Stenosis, Spondylolisthesis I identified the patient and participated in the time-out.: Yes Procedure Operation Date: 12/20/18 12:10 Actual Procedures p L4-L5, L5-S1 Laminectomy(Not Applicable) - Loco Pierce DO Surgeon Loco Pierce DO Genetic Physician ju Estimated Blood Loss 250 Findings Consistent with Post-Op Diagnosis Specimens Specimen Description: None per Surgeon Drains Hemovac Drain (10 fr )
--- NOTE | 2018-12-20 16:44 | Anesthesiology Progress Note ---
Date of Service December 20, 2018 Anesthesia Post Procedure Vital Signs Vital Signs: Temp Pulse Pulse Resp BP BP Pulse Ox 12/20/18 16:35 68 16 106/62 97 12/20/18 16:25 67 16 101/64 100 12/20/18 16:15 36.2 C L 67 16 131/68 100 12/20/18 10:47 36.8 C 79 20 153/79 H 98 Transfer of Care Handoff Completed per policy Notes Mental Status: alert / awake / arousable Patient Amnestic to Procedure: Yes Nausea / Vomiting: adequately controlled Pain: adequately controlled Airway Patency, RR, SpO2: stable & adequate BP & HR: stable & adequate Hydration State: stable & adequate Anesthetic Complications: no major complications apparent and Pt Satisfied with anesthetic care
--- NOTE | 2018-12-20 16:59 | Operative Report ---
DATE OF OPERATION: 12/20/2018 PREOPERATIVE DIAGNOSIS: Disc herniation L4-L5, severe stenosis L4-L5, L5-S1 POSTOPERATIVE DIAGNOSIS: Same. PROCEDURE: 1. Lumbar spine laminectomy L4-L5, L5-S1, foraminotomy, partial facetectomy bilaterally. 2. Diskectomy L4-L5. 3. Excision of large disc herniation that had migrated superiorly. SURGEON: Dr. Pierce. DIRECTOR OF ACADEMIC: Gustavo Morris PA-C. COMPLICATIONS: No complications. BLOOD LOSS: 250. The patient was taken to the operating room, a general intubated anesthetic provided to the patient, placed prone, prepped and draped sterile. We made a skin incision, fascial incision. We localized the area of dissection with fluoroscopy. We did a laminectomy taking off the entire lamina between L5 and S1, L4 and L5, right up to the very top and took off the top of the lamina of L4. We started left hand side. We decompressed the nerve roots providing facetectomy, taking off significant amount of ligamentum flavum hypertrophy. We then decompressed the right hand side which is symptomatic side, carefully very meticulously getting pressure off the dura and cauda equina. We then retracted the dura in a medial direction. I took out a large disc herniation that had come out through the L4-L5 interspace and migrated superiorly and actually went almost expanded the entire vertebral body height which is approximately 4 cm. We irrigated. I probed the nerve roots. I evaluated the nerve roots. There was no dural injury. There was no nerve injury. We irrigated and closed over vancomycin powder and Hemovac drain in stepwise fashion. Sterile dressing applied. The patient returned to PACU improved, stable condition. Sponge and needle count correct. There were no complications. I attest to the content of the Intraoperative Record and any orders documented therein. Any exception s are noted below.
--- NOTE | 2018-12-20 17:08 | Fluoroscopy Report ---
LUMBAR SPINE, INTRAOPERATIVE FLUOROSCOPY HISTORY: L4-S1 laminectomy. FLUOROSCOPY TIME: 4 seconds. FINDINGS: Intraoperative fluoroscopy was provided for the lumbar spine. There are 2 fluoroscopic spot images obtained. Surgical instruments are posterior to the L4 and L5 levels. IMPRESSION: Fluoroscopy provided for a L4-S1 laminectomies. Electronically signed by: Felipe Bocanegra M.D. 12/20/2018 5:07 PM
[2018-12-20] MEDS ORDERED: ACETAMINOPHEN 1,000 MG/100 ML VIAL IV PRN (17:12)
[2018-12-20] MEDS ORDERED: ONDANSETRON 4 MG TAB PO PRN (17:12)
[2018-12-20] MEDS ORDERED: bisacodyL 10 MG SUPP PR PRN (17:12)
[2018-12-20] MEDS ORDERED: OXYCODONE HCL IR 5 MG TAB (IMMEDIATE RELEASE) PO PRN (17:12)
[2018-12-20] MEDS ORDERED: MAGNESIUM HYDROXIDE SUSP 30 ML UDC PO PRN (17:12)
[2018-12-20] MEDS ORDERED: SODIUM CHLORIDE 0.9% 1000ML 1,000 ML IV SCH (17:12)
[2018-12-20] MEDS ORDERED: DO NOT ADMINISTER FLU VACCINE PRN (17:12)
[2018-12-20] MEDS ORDERED: HYDROmorphone INJ 0.5 MG/0.5 ML SYR IV PRN (17:12)
[2018-12-20] MEDS ORDERED: PROMETHAZINE HCL 12.5 MG in SODIUM CHLORIDE 0.9% 50 ML IV PRN (17:12)
[2018-12-20] MEDS ORDERED: ALUMINUM/MAGNESIUM SUSP 30 ML UDC PO PRN (17:12)
[2018-12-20] MEDS ORDERED: FAMOTIDINE 20 MG TAB PO PRN (17:12)
[2018-12-20] MEDS ORDERED: NALOXONE HCL 0.4 MG/1 ML VIAL/CARP IV PRN (17:12)
[2018-12-20] MEDS ORDERED: SOD PHOSPHATE/SOD BIPHOSPHATE ENEMA 132 ML BTL PR PRN (17:12)
[2018-12-20] MEDS ORDERED: DO NOT ADMINISTER PNEUMOCOCCAL VACCINE PRN (17:12)
[2018-12-20] MEDS ORDERED: TIZANIDINE HCL 4 MG TABLET PO PRN (17:12)
[2018-12-20] MEDS: KETOROLAC TROMETHAMINE 15 MG/ML VIAL IV SCH ×2 (18:50→23:56)
[2018-12-20] MEDS: CEFAZOLIN 2000MG 2,000 MG/15 ML SYR IV SCH (20:42)
[2018-12-20] MEDS: DOCUSATE SODIUM/SENNA 50/8.6MG TAB PO SCH (20:42)
[2018-12-21] MEDS: CEFAZOLIN 2000MG 2,000 MG/15 ML SYR IV SCH (03:40)
[2018-12-21] MEDS: POLYETHYLENE (MIRALAX) 17 GM PACK PO SCH ×3 (05:47→19:08)
[2018-12-21] MEDS: KETOROLAC TROMETHAMINE 15 MG/ML VIAL IV SCH ×2 (05:47→12:39)
--- NOTE | 2018-12-21 08:12 | Anesthesiology Progress Note ---
Date of Service December 21, 2018 Anesthesia Post Procedure Vital Signs Vital Signs: Temp Pulse Pulse Resp BP BP Pulse Ox 12/21/18 07:28 37.3 C 67 16 122/73 97 12/21/18 02:45 36.7 C 67 15 133/75 98 12/20/18 23:19 36.7 C 80 14 125/77 93 12/20/18 20:07 36.6 C 80 16 120/69 94 12/20/18 19:05 36.5 C 76 18 123/72 97 12/20/18 18:05 86 16 122/72 95 12/20/18 17:35 75 18 119/71 92 12/20/18 16:55 36.2 C L 72 16 128/75 100 12/20/18 16:45 36.2 C L 75 16 108/64 100 12/20/18 16:35 68 16 106/62 97 12/20/18 16:25 67 16 101/64 100 12/20/18 16:15 36.2 C L 67 16 131/68 100 12/20/18 10:47 36.8 C 79 20 153/79 H 98 Pain Intensity Back: Pain Intensity: 1 Notes Mental Status: alert / awake / arousable and participated in evaluation Patient Amnestic to Procedure: Yes Nausea / Vomiting: adequately controlled Pain: adequately controlled Airway Patency, RR, SpO2: stable & adequate BP & HR: stable & adequate Hydration State: stable & adequate Anesthetic Complications: no major complications apparent and Pt Satisfied with anesthetic care
[2018-12-21] MEDS: MULTIVITAMIN TAB PO SCH (09:04)
[2018-12-21] MEDS: hydroCHLOROthiazide 25 MG TAB PO SCH (09:04)
[2018-12-21] MEDS: ATORVASTATIN 20 MG TAB PO SCH (09:04)
[2018-12-21] MEDS: ASPIRIN 81 MG ECTAB PO SCH (09:05)
[2018-12-21] MEDS: AMLODIPINE BESYLATE 5 MG TAB PO SCH (09:05)
[2018-12-21] MEDS: DOCUSATE SODIUM/SENNA 50/8.6MG TAB PO SCH (20:28)
[2018-12-22] MEDS: POLYETHYLENE (MIRALAX) 17 GM PACK PO SCH ×2 (00:02→05:31)
--- NOTE | 2018-12-22 07:57 | Discharge Summary ---
DATE OF DISCHARGE: 12/22/18 SUBJECTIVE: He is alert and oriented this morning. Minimal complaints of pain. OBJECTIVE: Vital signs stable, alert and oriented. ASSESSMENT: Status post reconstruction, spinal surgery, decompression, a very tight canal, a very large disc herniation. PLAN: He will be up and going this morning. We will get him discharged. He has instructions and precautions provided. His drain will be removed. His dressing will be changed. We will see him for followup in approximately 12 days.
[2018-12-22 08:19] VITALS: TEMP 97.9; O2SAT 100
[2018-12-22] MEDS: ASPIRIN 81 MG ECTAB PO SCH (08:39)
[2018-12-22] MEDS: ATORVASTATIN 20 MG TAB PO SCH (08:40)
[2018-12-22] MEDS: MULTIVITAMIN TAB PO SCH (08:40)
[2018-12-22 08:42] VITALS: BP 128/71; PULSE 62
[2018-12-22] MEDS: AMLODIPINE BESYLATE 5 MG TAB PO SCH (08:42)
[2018-12-22] MEDS: hydroCHLOROthiazide 25 MG TAB PO SCH (08:42)
== END 2018-12-22 11:25 | disposition home or self-care (01) ==
LOC: 3E 10:10 → ASU 10:10

== ENCOUNTER 2019-04-26 04:56 | Inpatient (IN) ==
--- NOTE | 2019-03-30 13:44 | PAT Medication Instructions ---
Medication Instructions Date of Service March 30, 2019 Home Medications [facility] 1 tab PO QAM amlodipine 5 mg PO QAM ascorbic acid (vitamin C) 1,000 mg PO QAM aspirin 81 mg PO QAM atorvastatin 20 mg PO QAM cholecalciferol (vitamin D3) 8,000 unit PO QAM diclofenac sodium 150 mg PO QAM hydrochlorothiazide 25 mg PO QAM multivitamin 1 tab PO QAM tizanidine [Zanaflex] 2 mg PO Q8H PRN STOP taking 2 weeks before surgery If surgery is within 2 weeks, stop taking as soon as possible. [facility] 1 tab PO QAM DO NOT take the morning of surgery ascorbic acid (vitamin C) 1,000 mg PO QAM cholecalciferol (vitamin D3) 8,000 unit PO QAM hydrochlorothiazide 25 mg PO QAM multivitamin 1 tab PO QAM tizanidine [Zanaflex] 2 mg PO Q8H PRN Take morning of surgery With a small sip of water, OTHERWISE NOTHING TO EAT OR DRINK AFTER MIDNIGHT: amlodipine 5 mg PO QAM aspirin 81 mg PO QAM atorvastatin 20 mg PO QAM Take evening before surgery tizanidine [Zanaflex] 2 mg PO Q8H PRN (if needed) Other Notes If you have any questions please call us at [phone] or [phone] or [phone] or [phone]
--- NOTE | 2019-03-31 10:43 | Anesthesiology Consultation ---
Date of Service March 31, 2019 Assessment & Plan (1) Encounter for pre-operative examination: Chart Review Chart Review: Acceptable Risk for Surgery and Patient seen in Pre Admission Testing 12/20/18- L4-S1 laminectomy= Grade 3 view- MAC #4 ETT 8.0 DL x 1 atraumatic Hx of right CARROL in 11/2012- done under [place] secondary to "plugged sweat glands" in lumbar area. Subsequently had left TKA with spinal anesthesia without noted issues Teaching & Discussion Pre-Anesthesia Teaching/Discussion Notes: Instructed NPO after midnight before surgery,except medications with 15 cc of water. Medication instructions provided according to the PAT guidelines. History Surgery Operation Date: 04/26/19 08:40 Proposed Procedures p Left Total Hip Arthroplasty - Venkat Sotelo MD Height/Weight Height: 5 ft 9 in Weight: 103.4 kg Allergies Allergy/AdvReac Type Severity Reaction Status Date / Time codeine AdvReac Dizziness Verified 03/25/19 09:23 Medications Home Medications Medication Instructions Recorded Confirmed Last Taken [facility] 1 tab PO QAM 12/09/18 03/25/19 12/19/18 07:30 amlodipine 5 mg PO QAM 12/09/18 03/25/19 12/19/18 07:30 ascorbic acid (vitamin C) [Vitamin 1,000 mg PO QAM 12/09/18 03/25/19 12/19/18 07:30 C] aspirin 81 mg PO QAM 12/09/18 03/25/19 12/13/18 07:30 atorvastatin 20 mg PO QAM 12/09/18 03/25/19 12/19/18 07:30 cholecalciferol (vitamin D3) 8,000 unit PO QAM 12/09/18 03/25/19 12/19/18 07:30 [Vitamin D3] diclofenac sodium 150 mg PO QAM 12/09/18 03/25/19 12/19/18 19:00 hydrochlorothiazide 25 mg PO QAM 12/09/18 03/25/19 12/19/18 07:30 multivitamin 1 tab PO QAM 12/09/18 03/25/19 12/19/18 07:30 tizanidine [Zanaflex] 2 mg PO Q8H PRN 12/09/18 03/25/19 Unknown Past Medical History Medical History Degenerative disc disease Degenerative joint disease of left hip History of basal cell cancer Hyperlipidemia Hypertension Osteoarthritis Exercise / Class Metabolic Activity II 4-5 Yardwork/Stairs/Walk up hill (one flight stairs - no chest pain or SOB ) Past Family History Family History Aunt Family hx of colon cancer Grandfather (Paternal) Family hx of colon cancer Uncle Family hx of colon cancer Father Family hx of colon cancer Past Surgical History Surgical History History of basal cell carcinoma (BCC) excision History of colonoscopy History of left knee replacement History of lumbar laminectomy 12/20/2018 [facility] History of right hip replacement History of tonsillectomy Past Anesthesia History No Hx of Anesthesia Complications and No Family Hx of Anesthesia Complications History of PONV No Hx of PONV and No Hx of Motion Sickness Social History Smoking Status: Never smoker Do You Dip or Chew Tobacco: No Hx Alcohol Use: Yes Alcohol type: beer and wine alcohol intake frequency: a few times a week (1 drink 3 times weekly ) Hx Substance Use: No substance use type: does not use Review of Systems Patient denies chest pain, shortness of breath, dyspnea on exertion, reflux, cough, wheezing, palpitations. No hx of strokes, AK, seizures, blood clots or blood transfusions No recent steroid use Physical Exam Vital Signs VITALS BP 134/73 P 62 TEMP 98.0 SP02 97% RESP 20 Constitutional no acute distress ENMT Mouth: no TMJ clicking Thyromental Distance: > or= 3.5 Finger Breadths (3.5) Mallampati Class: II Upper permanent right side bridge Permanent implants- lower right frontal and lower left molar Recent crown lower left Neck normal visual inspection; neck extension not limited Respiratory normal respiratory effort; no respiratory distress Auscultation: lungs clear to auscultation bilaterally; no wheezes Cardiovascular Rate/Rhythm: regular rate and regular rhythm Vessels: no carotid bruit Musculoskeletal Spine: no pain with cervical ROM Neurologic moves all extremities Psychiatric Orientation: alert Testing Laboratory Results 03/31/19 10:51 03/31/19 10:51 PT 10.5 Seconds (9.0-12.0) 03/31/19 10:51 INR 1.0 (0.9-1.1) 03/31/19 10:51 APTT 25.3 Seconds (21.0-31.0) 03/31/19 10:51 Blood Type A Positive 03/31/19 10:51 Antibody Screen NEGATIVE 03/31/19 10:51 Electrocardiogram Date: 12/09/18 Findings: + NSR @ (63) Chest X-Ray Date: 12/09/18 Findings: + NAD The heart is the upper limits of normal in size
[2019-03-31 11:53] LABS: Basophils # (auto) 0.03 K/uL (0-0.2); Basophils % (auto) 0.5 %; Eosinophils # (auto) 0.31 K/uL (0-0.5); Eosinophils % (auto) 4.9 %; Hematocrit (blood only) 41.1 % (42-52); Immature Granulocytes # (auto) 0.01 K/uL (0.00-0.02); Immature Granulocytes % (auto) 0.2 %; Lymphocytes # (auto) 1.72 K/uL (1.2-3.4); Lymphocytes % (auto) 27.2 %; Mean Corpuscular Hemoglobin 31.5 pg (25-34); Mean Corpuscular Hgb Conc 34.1 g/dL (32-36); Mean Corpuscular Volume 92.4 fL (80-100); Mean Platelet Volume 9.8 fL (7.4-10.4); Monocytes # (auto) 0.57 K/uL (0.11-0.59); Neutrophils # (auto) 3.68 K/uL (1.4-6.5); Neutrophils % (auto) 58.2 %; Platelet Count 231 K/uL (130-400); RDW Coefficient of Variation 12.2 % (11.5-14.5); RDW Standard Deviation 41.4 fL (36.4-46.3); Red Blood Count 4.45 M/uL (4.7-6.1); White Blood Count 6.32 K/uL (4.8-10.8)
[2019-03-31 12:05] LABS: Partial Thromboplastin Ratio 0.9; Partial Thromboplastin Time 25.3 Seconds (21.0-31.0); Prothrombin Time 10.5 Seconds (9.0-12.0)
[2019-03-31 12:18] LABS: BUN Creatinine Ratio 19.9 (10-20); Blood Urea Nitrogen 15 mg/dl (7-18); Calcium 8.9 mg/dl (8.5-10.1); Carbon Dioxide 30 mmol/L (21-32); Chloride 105 mmol/L (98-107); Creatinine Clr Calc Pharmacy 102.6 ml/min; Est GFR (African American) 104.9; Est GFR (Non-African American) 90.5; Glucose 96 mg/dl (70-99); Potassium 4.1 mmol/L (3.5-5.1); Sodium 138 mmol/L (136-145)
[2019-03-31 12:19] LABS: C Reactive Protein < 0.29 mg/dl (0-0.29)
[2019-04-26] MEDS ORDERED: METOCLOPRAMIDE HCL 10 MG TABLET PO SCH (06:00)
[2019-04-26] MEDS ORDERED: ACETAMINOPHEN 500 MG TAB PO SCH (06:00)
[2019-04-26] MEDS ORDERED: FAMOTIDINE 20 MG TAB PO SCH (06:00)
[2019-04-26] MEDS ORDERED: LR 60ML/HR IV SCH (06:00)
[2019-04-26] MEDS ORDERED: GABAPENTIN 300 MG CAP PO SCH (06:00)
[2019-04-26] MEDS ORDERED: CEFAZOLIN 2000MG 2,000 MG/15 ML SYR IV SCH (06:00)
[2019-04-26] MEDS ORDERED: LR 500ML BOLUS, THEN 15ML/HR IV SCH (06:00)
[2019-04-26] MEDS ORDERED: MoRPHine SULFATE PF 1 MG/ML 10 ML AMP/VIAL ONE (06:30)
[2019-04-26] MEDS ORDERED: fentaNYL citrate 100 MCG/2 ML VIAL ONE (06:30)
[2019-04-26] MEDS ORDERED: MIDAZOLAM HCL 1 MG/ML 2ML VIAL ONE ×3 (06:30→07:51)
[2019-04-26] MEDS ORDERED: PROPOFOL IV EMULSION 10 MG/ML 20 ML VIAL IV ONE ×2 (06:30→07:07)
[2019-04-26] MEDS ORDERED: BUPIVACAINE 0.5 % 5 MG/1 ML PF 10ML VIAL ONE (06:33)
[2019-04-26] MEDS ORDERED: BACITRACIN INJ 50,000 UNIT VIAL ONE (06:41)
[2019-04-26] MEDS ORDERED: TRANEXAMIC ACID / 0.7% NACL 1,000 MG/100 ML BAG IV STA (06:42)
[2019-04-26] MEDS ORDERED: BUPIVACAINE/EPINEPHRINE 0.5% MPF 1:200,000 10 ML VIAL ONE (06:42)
--- NOTE | 2019-04-26 06:48 | History & Physical Bridge Note ---
Date of Service April 26, 2019 History & Physical Bridge Note I have examined the patient, reviewed the History & Physical and in the interval since the performance of the History & Physical I have noted the following changes of clinical significance: no changes noted
[2019-04-26] MEDS ORDERED: ONDANSETRON INJ 2 MG/ML 2 ML VIAL IV PRN (06:52)
[2019-04-26] MEDS ORDERED: MEPERIDINE HCL 25 MG/ML CARP IV PRN (06:52)
[2019-04-26] MEDS ORDERED: NALOXONE HCL 0.08 MG in SYRINGE 1.8 ML IV PRN (06:52)
[2019-04-26] MEDS ORDERED: NALBUPHINE HCL INJ 10 MG/ML AMP IV PRN (06:52)
[2019-04-26] MEDS ORDERED: NALOXONE HCL 0.4 MG/1 ML VIAL/CARP IV PRN ×2 (06:52→09:54)
[2019-04-26] MEDS ORDERED: NALOXONE HCL 1 MG in SODIUM CHLORIDE 0.9% 1000ML 1,000 ML IV PRN (06:52)
[2019-04-26] MEDS ORDERED: ePHEDrine sulfate 50 MG/ML AMP IV PRN (06:52)
[2019-04-26] MEDS ORDERED: DiphenhydrAMINE HCL 50 MG/ML VIAL IV PRN (06:52)
[2019-04-26] MEDS ORDERED: MoRPHine SULFATE PF 1 MG/ML 10 ML AMP/VIAL INT SPINAL ONE (06:52)
[2019-04-26] MEDS ORDERED: LACTATED RINGER'S 500 ML IV PRN (06:52)
[2019-04-26] MEDS ORDERED: SODIUM CHLORIDE 0.9% 1000ML 1,000 ML IV SCH (07:00)
[2019-04-26] MEDS ORDERED: NO NARCOTICS OR SEDATIVES SCH (07:00)
[2019-04-26] MEDS ORDERED: ePHEDrine sulfate 50 MG/ML SYR ONE (07:29)
[2019-04-26] MEDS ORDERED: PHENYLEPHRINE 100MCG/ML 5ML SYR ONE (07:29)
--- NOTE | 2019-04-26 08:32 | Post Operative Brief Note ---
PG Immediate Post Op with CF Date of Surgery April 26, 2019 Pre & Post Diagnosis Operation Date: 04/26/19 07:00 Pre-Op Diagnosis: Left Hip Degenerative Joint Disease Post-Op Diagnosis: Left Hip Degenerative Joint Disease I identified the patient and participated in the time-out.: Yes Procedure Operation Date: 04/26/19 07:00 Actual Procedures p Left Total Hip Arthroplasty(Left) - Venkat Sotelo MD Surgeon Venkat Sotelo MD Sound Technician Supervisor Hailee, PAC Estimated Blood Loss 200 Findings Consistent with Post-Op Diagnosis Fluids 900 cc Specimens Specimen Description: Permanent Specimen: A) Left Femoral Head Drains Yañez Catheter Anesthesia Type Spinal MAC Complications none Disposition Accompanied Patient To Recovery: Yes
--- NOTE | 2019-04-26 08:44 | Operative Report ---
Post Operative Report Pre & Post Diagnosis Operation Date: 04/26/19 07:00 Pre-Op Diagnosis: Left Hip Degenerative Joint Disease Post-Op Diagnosis: Left Hip Degenerative Joint Disease I identified the patient and participated in the time-out.: Yes Procedure Operation Date: 04/26/19 07:00 Actual Procedures p Left Total Hip Arthroplasty(Left) - Venkat Sotelo MD Surgeon Venkat Sotelo MD Electric Needle Specialist Hailee, PAC Estimated Blood Loss 200 Findings Consistent with Post-Op Diagnosis Operative findings revealed advanced left hip DJD with grade 4 [id number] disease of the femoral head and acetabulum. He had a large anterior acetabular osteophyte. Moderate sized joint effusion. Fluids 900 cc. Specimens Left femoral head sent for pathology. Drains None. Anesthesia Type Spinal MAC Complications none Disposition Accompanied Patient To Recovery: Yes Disposition: Recovery Room Indications Patient is a 74-year-old very active gentleman is had a history of multiple joint problems in the past. Previous right hip as well as left knee replacement and relatively recent back surgery. Over the past year he is developed increased pain discomfort in his left groin thigh and leg area. X-rays show progressive left hip arthritis. Failed conservative treatment. Elective proceed with total hip arthroplasty. Description of Procedure Operative implants consist of: 1. A Biomet G7 size 54 mm acetabular shell. 2. 6.5 cancellus acetabular screws 135 mm length and 130 mm length. 3. [place] hole eliminator. 4. Highly cross-linked polyethylene liner with a 54 mm outer diameter and 36 mm inner diameter. 5. Harshal Corail size 11 KLA femoral stem. 6. +1.5/36 mm ceramic articular ball. Patient was taken to the operating room identified and placed on the operating table supine position protectors were properly padded. IV antibiotics arrived by anesthesia team. A Yañez catheter was placed in sterile fashion. Patient then placed to the right lateral decubitus position. Axillary roll was placed. A Stulberg hip positioner was used for positioning. The left hip and leg were then prepped and draped in usual sterile fashion. A posterior lateral posterior left hip was then performed to a curvilinear incision centered over the greater trochanter. Sharp dissection was cut through subcutaneous tissue down to level the IT band gluteal fascia the IT band gluteal fascia were then incised longitudinally in line with skin incision. The underlying greater trochanteric bursa was excised. The piriformis and external rotators were tagged and taken off the posterior aspect hip joint capsule. Great care was taken throughout the procedure to protect the sciatic nerve at all times. Posterior capsulotomy was then performed leaving a large flap for later repair. Hip was internally rotated and dislocated. Femoral neck osteoto my cut was made with Final Cut 15 mm above the lesser trochanter. Femoral head was removed and sent for pathology. The femur was retracted anteriorly. Attention drawn the acetabulum. The acetabulum labrum was excised. The pulmonary fat was excised. Sequential reaming the acetabular was then performed again with a size 45 and progressing up to 53. A 54 mm Biomet G7 acetabular shell was then placed in about 40 degrees lateral opening and 20 degrees of anteversion. It was fixed with two 6.5 cancellus acetabular screws. A large anterior osteophyte was removed. Trial liner was placed. Attention drawn the femur. The proximal femur was entered with a cookie-cutter followed by canal finder. I then broached beginning with size 8 and progressing up to 11. We got excellent fit at 11 and was very stable. I elected to place these implants. The calcar reamer was used smooth and off the calcar. Then trialed the hip. The hip was fully stable but with a +5 head and she seemed a little bit long. With the 1.5 neck length the hip was fully stable in full extension and external rotation flexion to 9 degrees into rotation over 50 degrees. Leg lengths seemed appropriate. This leg was equal and maybe a little bit long before surgery so I did not want a length to him at all. I elect to place these implants. All trial implants were removed. An apex hole eliminator was placed. Highly cross-linked polyethylene liner was placed. JOSESITO Logan femoral stem was impacted in position. +1.5/36 mm ceramic articular ball was placed. Hip was located once again found to be stable. Attention drawn toward closing. The wound was irrigated copious pulsatile lavage solution. I did inject locally with 60 cc of half percent Marcaine with epinephrine. The posterior capsule and external rotators then repaired through drill holes in the posterior trochanter with #2 Tycron suture. The IT band gluteal fascia then closed in 1 PDS suture running fashion. Subcutaneous tissue then closed with 2 layers with a deep layer #1 Vicryl suture and subcutaneous tissues with 2 Dexon suture in a buried interrupted fashion for skin was closed skin jeramie. Leg was then cleaned dried a sterile dressing composed of Xeroform, 4 x 4's, sterile ABD pad and foam tape was applied. Patient then transferred to the recovery room in stable condition. Patient tolerated procedure well no complications. I attest to the content of the Intraoperative Record and any orders documented therein. Any exceptions are noted below.
--- NOTE | 2019-04-26 09:11 | XRay Report ---
XR hip 1V LT w pelvis CLINICAL HISTORY: IN PACU - A/P PELVIS and LATERAL HIP COMPARISON: 01/07/2013 DISCUSSION: Anatomic alignment posttotal left hip arthroplasty. Pre-existing total right hip arthropl asty. Could contact between prosthetic and underlying bone. Expected postoperative soft tissue change. IMPRESSION: Anatomic alignment post total left hip arthroplasty. ACT 112: Negative or not required by law. The above report was generated using voice recognition software. It may contain grammatical, syntax or spelling errors. Electronically signed by: Gregory Donnelly M.D. 04/26/2019 9:10 AM
--- NOTE | 2019-04-26 09:35 | Anesthesiology Progress Note ---
Date of Service April 26, 2019 Anesthesia Post Procedure Vital Signs Vital Signs: Temp Pulse Pulse Resp BP Pulse Ox 04/26/19 09:30 97.9 F 75 17 116/57 L 97 04/26/19 09:20 97.9 F 72 17 119/61 99 04/26/19 09:10 97.9 F 75 20 116/62 99 04/26/19 09:00 79 13 97/49 L 100 04/26/19 08:50 75 17 113/59 L 100 04/26/19 08:40 86 15 139/62 100 04/26/19 08:33 97.0 F L 91 H 14 119/59 L 98 04/26/19 05:41 97.9 F 77 20 148/80 H 94 Pain Intensity Left Hip: Pain Intensity: 0 Transfer of Care Handoff Completed per policy Notes Mental Status: alert / awake / arousable and participated in evaluation Patient Amnestic to Procedure: Yes Nausea / Vomiting: adequately controlled Pain: adequately controlled Airway Patency, RR, SpO2: stable & adequate BP & HR: stable & adequate Hydration State: stable & adequate Neuraxial Anesthesia: was administered and sensory block is resolving Anesthetic Complications: no major complications apparent and Pt Satisfied with anesthetic care
[2019-04-26] MEDS ORDERED: MAGNESIUM HYDROXIDE SUSP 30 ML UDC PO PRN (09:54)
[2019-04-26] MEDS ORDERED: TAMSULOSIN HCL 0.4 MG CAP PO PRN (09:54)
[2019-04-26] MEDS ORDERED: MULTIVITAMIN TAB PO SCH (09:54)
[2019-04-26] MEDS ORDERED: bisacodyL 10 MG SUPP PR PRN (09:54)
[2019-04-26] MEDS ORDERED: ALUMINUM/MAGNESIUM SUSP 30 ML UDC PO PRN (09:54)
[2019-04-26] MEDS ORDERED: METOCLOPRAMIDE HCL INJ 5 MG/ML 2 ML VIAL IV PRN (09:54)
[2019-04-26] MEDS: SODIUM CHLORIDE 0.9% 1000ML 1,000 ML IV SCH ×2 (10:43→20:35)
[2019-04-26] MEDS: MULTIVITAMIN TAB PO SCH (11:48)
[2019-04-26] MEDS: hydroCHLOROthiazide 25 MG TAB PO SCH (11:49)
[2019-04-26] MEDS: ASPIRIN 81 MG ECTAB PO SCH ×2 (11:49→20:59)
[2019-04-26] MEDS: CHOLECALCIFEROL 1,000 UNITS 25 MCG TAB PO SCH (11:49)
[2019-04-26] MEDS: AMLODIPINE BESYLATE 5 MG TAB PO SCH (11:50)
[2019-04-26] MEDS: DOCUSATE SODIUM 100 MG CAP PO SCH ×2 (11:50→20:59)
[2019-04-26] MEDS: ASCORBIC ACID 500 MG TAB PO SCH (11:51)
[2019-04-26] MEDS: ATORVASTATIN 20 MG TAB PO SCH (11:51)
[2019-04-26] MEDS: KETOROLAC TROMETHAMINE 15 MG/ML VIAL IV SCH ×2 (11:52→18:29)
[2019-04-26] MEDS: ACETAMINOPHEN 500 MG TAB PO SCH ×2 (14:01→21:00)
[2019-04-26] MEDS: CEFAZOLIN 2000MG 2,000 MG/15 ML SYR IV SCH ×2 (14:05→22:52)
--- NOTE | 2019-04-26 14:28 | Progress Note ---
DATE: 04/26/2019 SUBJECTIVE: 74-year-old gentleman postop from a left hip replacement. He is doing well. Not having any pain yet. Denies any chest pain or shortness of breath. Not feeling dizzy or lightheaded. OBJECTIVE: VITAL SIGNS: Temperature is 36.3. Vital signs stable. GENERAL: Shows a pleasant, middle-aged male. He is sitting up in his bed and looks pretty comfortable. EXTREMITIES: Examination of the left hip reveals the leg to be well aligned. Dressing is clean, dry, and intact. He can dorsiflex and plantarflex his foot appropriately. He is neurologically intact. X-RAYS: X-rays of the left hip from recovery room reviewed. It shows left uncemented total hip arthroplasty. Components look to be in good position. No signs of problems. ASSESSMENT: 74-year-old male postop from a left hip replacement, doing well. Pain is controlled. Hip is located. He is neurologically intact. PLAN: 1. DVT prophylaxis including thigh-high TEDS, SCDs, and aspirin twice a day. 2. PT/OT. Weight bear as tolerated. Left total hip protocol. 3. Pain control, doing pretty well with current pain regimen. 4. IV antibiotics x24 hours. 5. Disposition: Plan to discharge to home with some home health once adequately recovered and medically stable.
[2019-04-26] MEDS ORDERED: TRANEXAMIC ACID / 0.7% NACL 1,000 MG/100 ML BAG IV SCH (14:35)
[2019-04-26] MEDS: FERROUS GLUCONATE 324 MG TAB PO SCH (18:29)
[2019-04-26] MEDS: SENNA 8.6 MG TAB PO SCH (20:59)
[2019-04-27] MEDS: KETOROLAC TROMETHAMINE 15 MG/ML VIAL IV SCH ×5 (00:21→23:33)
[2019-04-27] MEDS ORDERED: ONDANSETRON INJ 2 MG/ML 2 ML VIAL IV PRN (00:52)
[2019-04-27] MEDS ORDERED: DC INTRASPINAL MORPHINE ONE (00:52)
[2019-04-27] MEDS ORDERED: HYDROmorphone INJ 0.5 MG/0.5 ML SYR IV PRN (00:52)
[2019-04-27] MEDS: ACETAMINOPHEN 500 MG TAB PO SCH ×3 (06:10→21:39)
[2019-04-27 06:25] LABS: Basophils # (auto) 0.02 K/uL (0-0.2); Basophils % (auto) 0.2 %; Eosinophils # (auto) 0.44 K/uL (0-0.5); Eosinophils % (auto) 3.5 %; Hematocrit (blood only) 36.7 % (42-52); Hemoglobin 12.8 g/dL (14.0-18.0); Immature Granulocytes # (auto) 0.04 K/uL (0.00-0.02); Immature Granulocytes % (auto) 0.3 %; Lymphocytes # (auto) 1.32 K/uL (1.2-3.4); Lymphocytes % (auto) 10.4 %; Mean Corpuscular Hemoglobin 31.7 pg (25-34); Mean Corpuscular Hgb Conc 34.9 g/dL (32-36); Mean Corpuscular Volume 90.8 fL (80-100); Mean Platelet Volume 9.7 fL (7.4-10.4); Monocytes # (auto) 1.14 K/uL (0.11-0.59); Monocytes % (auto) 8.9 %; Neutrophils # (auto) 9.79 K/uL (1.4-6.5); Neutrophils % (auto) 76.7 %; Platelet Count 189 K/uL (130-400); RDW Coefficient of Variation 12.6 % (11.5-14.5); RDW Standard Deviation 42.1 fL (36.4-46.3); Red Blood Count 4.04 M/uL (4.7-6.1); White Blood Count 12.75 K/uL (4.8-10.8)
[2019-04-27 06:57] LABS: BUN Creatinine Ratio 14.9 (10-20); Calcium 8.2 mg/dl (8.5-10.1); Creatinine Clr Calc Pharmacy 96.5 ml/min; Est GFR (African American) 103.1; Est GFR (Non-African American) 88.9; Potassium 3.6 mmol/L (3.5-5.1)
--- NOTE | 2019-04-27 08:08 | Anesthesiology Progress Note ---
Date of Service April 27, 2019 Anesthesia Post Procedure Vital Signs Vital Signs: Temp Pulse Pulse Resp BP Pulse Ox Pulse Ox 04/27/19 07:40 36.6 C 70 18 106/67 94 04/27/19 02:51 36.9 C 71 16 114/71 100 04/27/19 00:41 16 92 04/26/19 23:40 16 94 04/26/19 22:53 37.1 C 76 16 114/74 96 04/26/19 22:50 15 99 04/26/19 21:42 16 98 04/26/19 20:45 16 99 04/26/19 19:38 37.0 C 78 17 111/64 98 04/26/19 19:35 17 98 04/26/19 18:40 16 99 04/26/19 17:40 15 99 04/26/19 16:40 16 98 04/26/19 15:42 16 99 04/26/19 15:33 36.5 C 70 18 118/72 100 04/26/19 14:39 15 97 04/26/19 13:35 16 99 04/26/19 12:40 16 99 04/26/19 12:20 36.3 C L 72 16 109/69 95 04/26/19 11:45 36.4 C L 18 106/71 98 04/26/19 11:40 18 96 04/26/19 10:40 16 99 04/26/19 10:27 36.7 C 72 18 127/82 98 04/26/19 10:12 36.5 C 71 18 109/71 100 04/26/19 09:40 36.4 C L 75 18 115/68 99 99 04/26/19 09:30 36.6 C 75 17 116/57 L 97 04/26/19 09:20 36.6 C 72 17 119/61 99 04/26/19 09:10 36.6 C 75 20 116/62 99 04/26/19 09:00 79 13 97/49 L 100 04/26/19 08:50 75 17 113/59 L 100 04/26/19 08:40 86 15 139/62 100 04/26/19 08:33 36.1 C L 91 H 14 119/59 L 98 Pain Intensity Left Hip: Pain Intensity: 0 Notes Mental Status: alert / awake / arousable and participated in evaluation Patient Amnestic to Procedure: Yes Nausea / Vomiting: adequately controlled Pain: adequately controlled Airway Patency, RR, SpO2: stable & adequate BP & HR: stable & adequate Hydration State: stable & adequate Neuraxial Anesthesia: was administered and sensory block resolved Anesthetic Complications: no major complications apparent and Pt Satisfied with anesthetic care
[2019-04-27] MEDS: FERROUS GLUCONATE 324 MG TAB PO SCH ×2 (08:40→19:36)
[2019-04-27] MEDS: DOCUSATE SODIUM 100 MG CAP PO SCH ×2 (08:53→21:39)
[2019-04-27] MEDS: ATORVASTATIN 20 MG TAB PO SCH (08:54)
[2019-04-27] MEDS: CHOLECALCIFEROL 1,000 UNITS 25 MCG TAB PO SCH (08:54)
[2019-04-27] MEDS: AMLODIPINE BESYLATE 5 MG TAB PO SCH (08:55)
[2019-04-27] MEDS: MULTIVITAMIN TAB PO SCH (08:55)
[2019-04-27] MEDS: ASPIRIN 81 MG ECTAB PO SCH ×2 (08:56→21:39)
[2019-04-27] MEDS: hydroCHLOROthiazide 25 MG TAB PO SCH (08:56)
[2019-04-27] MEDS: ASCORBIC ACID 500 MG TAB PO SCH (08:56)
[2019-04-27] MEDS: TRAMADOL HCL 50 MG TABLET PO PRN ×3 (08:58→21:38)
--- NOTE | 2019-04-27 09:33 | Progress Note ---
DATE: 04/27/2019 SUBJECTIVE: A 74-year-old gentleman postop day 1 from a left hip replacement. He is doing well. Starting to have a little bit more pain this morning. Feels like his spine is worn off. His legs are pretty weak yesterday. No chest pain or shortness of breath. Not feeling dizzy or lightheaded. Pain is controlled. OBJECTIVE: VITAL SIGNS: Temperature 36.6. Vital signs stable. GENERAL: Shows a pleasant, middle-aged male. He is lying in bed, looks pretty comfortable. EXTREMITIES: Examination of left hip reveals leg lengths to be equal. Dressing is clean, dry and intact. Thigh is soft and supple. He is neurologically intact. He can dorsiflex and plantarflex his foot appropriately. LABORATORY DATA: Hemoglobin 12.8. Hematocrit 36.7. Electrolytes are stable. ASSESSMENT: A 74-year-old gentleman postop day 1 from a left hip replacement, doing pretty well. His pain is controlled. Hip is located. He is neurologically intact. PLAN: 1. DVT prophylaxis including thigh-high TEDs, SCDs, and aspirin twice a day. 2. PT/OT. Weight bear as tolerated. Left total hip protocol. 3. Pain control, doing pretty well with current pain regimen. 4. Disposition: Plan to discharge to home likely with some home health once adequately recovered and medically stable.
[2019-04-27] MEDS: SENNA 8.6 MG TAB PO SCH (21:39)
[2019-04-28] MEDS: ACETAMINOPHEN 500 MG TAB PO SCH (06:13)
[2019-04-28] MEDS: KETOROLAC TROMETHAMINE 15 MG/ML VIAL IV SCH (06:13)
[2019-04-28] MEDS: ATORVASTATIN 20 MG TAB PO SCH (07:49)
[2019-04-28] MEDS: TRAMADOL HCL 50 MG TABLET PO PRN (07:49)
[2019-04-28] MEDS: DOCUSATE SODIUM 100 MG CAP PO SCH (07:50)
[2019-04-28] MEDS: FERROUS GLUCONATE 324 MG TAB PO SCH (07:50)
[2019-04-28] MEDS: AMLODIPINE BESYLATE 5 MG TAB PO SCH (07:50)
[2019-04-28] MEDS: ASCORBIC ACID 500 MG TAB PO SCH (07:50)
[2019-04-28] MEDS: MULTIVITAMIN TAB PO SCH (07:50)
[2019-04-28] MEDS: hydroCHLOROthiazide 25 MG TAB PO SCH (07:50)
[2019-04-28] MEDS: CHOLECALCIFEROL 1,000 UNITS 25 MCG TAB PO SCH (07:51)
[2019-04-28] MEDS: ASPIRIN 81 MG ECTAB PO SCH (07:51)
--- NOTE | 2019-04-28 15:28 | Progress Note ---
DATE: 04/28/2019 SUBJECTIVE: 74-year-old gentleman postop day 2 from a left hip replacement. He is doing pretty well. Rates his pain at a 4-5/10. No chest pain or shortness of breath. He is doing okay with the pain pills. Denies feeling dizzy or lightheaded. OBJECTIVE: VITAL SIGNS: Temperature 36.8. Vital signs stable. GENERAL: Shows a pleasant, middle-aged male. He is sitting up in his bedside chair when I visited him this morning. EXTREMITIES: Examination of the left hip reveals the dressing to be clean, dry and intact. Thigh is soft and supple. Mild swelling. Hip is located. He is neurologically intact. ASSESSMENT: 74-year-old gentleman postop day 2 from left hip replacement, doing pretty well. Pain is controlled. Hip is located. He is neurologically intact. PLAN: 1. DVT prophylaxis including thigh-high TEDs, SCDs, and aspirin twice a day. 2. PT/OT. Weight bear as tolerated. Left total hip protocol. 3. Pain control, doing pretty well with current pain regimen. 4. Disposition: Plan to discharge to home with some home health today.
--- NOTE | 2019-04-29 15:50 | Discharge Summary ---
ADMITTING PHYSICIAN AND SURGEON: Dr. Venkat Sotelo. ADMITTING DIAGNOSIS: Left hip degenerative joint disease. SURGERY PERFORMED: Left total hip arthroplasty. SECONDARY DIAGNOSES: Hypertension, elevated cholesterol, sleep apnea, arthritis, lumbar spinal stenosis, basal cell skin cancer. CONSULTS: None obtained. HISTORY AND PHYSICAL EXAMINATION: Well documented in the patient's chart. HOSPITAL COURSE: The patient was admitted on 04/26/2019 underwent total hip arthroplasty, tolerated the procedure well. There were no complications. He was transferred to the PACU postoperatively and later to the orthopedic floor for further care. He was given Ancef for antibiotic prophylaxis, LV stockings, SCDs and aspirin for DVT prophylaxis. Hemoglobin, hematocrit and vital signs were monitored during his hospital stay and remained stable, did not require any blood transfusions. There were no complications. By postoperative day 2 he was tolerating a regular diet, pain was controlled with oral pain medicine. He was participating in physical therapy. Postop day 2 he was discharged home, set up with home health services, given printed discharge instructions as well as new prescriptions for extra strength Tylenol, aspirin and tramadol. Continue his home medicines. Continue physical therapy, weightbearing as tolerated, LV stockings, total hip precautions. Follow up approximately 2 weeks postop or sooner if there are any problems or concerns.
== END 2019-04-28 12:06 | disposition home health service (06) | DRG 470 ==
LOC: ASU 04:56 → 3E 08:36

== ENCOUNTER 2022-04-22 08:26 | Observation (INO) ==
--- NOTE | 2022-02-20 09:44 | PAT Medication Instructions ---
Medication Instructions Date of Service February 20, 2022 Home Medications Medication Instructions Recorded tramadol 50 mg tablet 50 - 100 mg PO Q6H PRN pain #40 05/02/19 tabs amlodipine 5 mg tablet 2.5 mg PO QAM ascorbic acid (vitamin C) 500 mg tablet (Vitamin C) 1,000 mg PO QAM atorvastatin 20 mg tablet 20 mg PO QAM cholecalciferol (vitamin D3) 50 mcg (2,000 unit) capsule (Vitamin D3) 8,000 unit PO QAM hydrochlorothiazide 25 mg tablet 25 mg PO QAM multivitamin 1 tab PO QAM tramadol 50 mg tablet 50 - 100 mg PO Q6H PRN pain losartan 25 mg tablet 25 mg PO QAM methylprednisolone 4 mg tablets in a dose pack 4 mg PO UD PRN Pain metoprolol succinate 25 mg tablet,extended release 24 hr 25 mg PO QAM Continue as directed methylprednisolone 4 mg tablets in a dose pack 4 mg PO UD PRN Pain (if needed) DO NOT take the morning of surgery ascorbic acid (vitamin C) 500 mg tablet (Vitamin C) 1,000 mg PO QAM cholecalciferol (vitamin D3) 50 mcg (2,000 unit) capsule (Vitamin D3) 8,000 unit PO QAM hydrochlorothiazide 25 mg tablet 25 mg PO QAM multivitamin 1 tab PO QAM losartan 25 mg tablet 25 mg PO QAM Take morning of surgery With a small sip of water, OTHERWISE NOTHING TO EAT OR DRINK AFTER MIDNIGHT: amlodipine 5 mg tablet 2.5 mg PO QAM atorvastatin 20 mg tablet 20 mg PO QAM tramadol 50 mg tablet 50 - 100 mg PO Q6H PRN pain (if needed) metoprolol succinate 25 mg tablet,extended release 24 hr 25 mg PO QAM Take evening before surgery tramadol 50 mg tablet 50 - 100 mg PO Q6H PRN pain (if needed) Other Notes If you have any questions please call us at [phone] or [phone] or [phone] or [phone]
--- NOTE | 2022-02-27 10:08 | Anesthesiology Consultation ---
Date of Service February 27, 2022 Assessment & Plan (1) Encounter for pre-operative examination: - cardiology 02/11/22 [facility]: "...doing well. No sense of tachy palpitations since April. No chest pains or shortness of breath...Paroxysmal atrial tachycardia no recurrence of symptomatic events since April of 2021. Continue metoprolol succinate 25 mg p.o. q.day Patient to continue to follow with EP...Preoperative evaluation planned total knee replacement. Stress testing May 01 1021- for ischemia. No history of angina congestive heart failure or arrhythmias currently. Functional capacity well above 5 Mets. Note difficulties with prior surgery/anesthesia. No contraindications to surgery as planned..." - Outpatient joint assessment: Patient is currently scheduled for inpatient pathway. If re-evaluated pending system levels during current pandemic/surgeon requests outpatient pathway, patient is not recommended candidate for outpatient joint program from anesthesia standpoint. Chart Review Chart Review: Acceptable Risk for Surgery and Patient seen in Pre Admission Testing Teaching & Discussion Pre-Anesthesia Teaching/Discussion Notes: Instructed NPO after midnight before surgery, except medications with 15 cc of water. Medication instructions provided according to the PAT guidelines. History Surgery Operation Date: 04/22/22 07:00 Proposed Procedures p Right Total Knee Arthroplasty - Venkat Sotelo MD Height/Weight Height: 5 ft 9 in Weight: 99.79 kg Allergies Allergy/AdvReac Type Severity Reaction Status Date / Time codeine AdvReac Dizziness Verified 02/20/22 07:41 Medications Home Medications Medication Instructions Recorded Confirmed Last Taken ascorbic acid (vitamin C) 500 mg 1,000 mg PO QAM 12/09/18 02/20/22 04/25/19 07:30 tablet (Vitamin C) atorvastatin 20 mg tablet 20 mg PO QAM 12/09/18 02/20/22 04/25/19 07:30 cholecalciferol (vitamin D3) 50 8,000 unit PO QAM 12/09/18 02/20/22 04/25/19 07:30 mcg (2,000 unit) capsule (Vitamin D3) hydrochlorothiazide 25 mg tablet 25 mg PO QAM 12/09/18 02/20/22 04/25/19 07:30 multivitamin 1 tab PO QAM 12/09/18 02/20/22 04/25/19 07:30 tramadol 50 mg tablet 50 - 100 mg PO Q6H PRN pain #40 05/02/19 02/20/22 Unknown tabs losartan 25 mg tablet 25 mg PO QAM 02/20/22 02/20/22 Unknown methylprednisolone 4 mg tablets in 4 mg PO UD PRN Pain 02/20/22 02/20/22 Unknown a dose pack metoprolol succinate 25 mg 25 mg PO QAM 02/20/22 02/20/22 Unknown tablet,extended release 24 hr amlodipine 2.5 mg tablet 2.5 mg PO QAM 02/27/22 02/27/22 Unknown Past Medical History Medical History (Updated 02/27/22 @ 10:01 by Otilia Lechuga PA-C) Degenerative disc disease Degenerative joint disease of left hip History of basal cell cancer Hyperlipidemia Hypertension SVT (supraventricular tachycardia) follows with Dr. Schuler Taking metoprolol Patient denies h/o stroke, seizures, heart attack, heart failure, DM, blood clots or blood transfusions. Exercise / Class Metabolic Activity II 4-5 Yardwork/Stairs/Walk up hill (denies CP or SOB with 1 FOS) Past Family History Family History Aunt Family hx of colon cancer Grandfather (Paternal) Family hx of colon cancer Uncle Family hx of colon cancer Father Family hx of colon cancer Past Surgical History Surgical History (Updated 02/27/22 @ 10:01 by Otilia Lechuga PA-C) History of basal cell carcinoma (BCC) excision History of colonoscopy History of left hip replacement Left CARROL (04/26/19): SAB at L3-4 (x1 attempt) at [facility]. No issues noted per post-op anesthesia progress note. History of left knee replacement 07/24/16 SAB L3-L4 + PNB. History of lumbar laminectomy 12/20/2018 [facility] L4-S1 Grade 3 view, MAC 4, ETT 8. History of right hip replacement History of tonsillectomy History of tooth extraction Past Anesthesia History No Hx of Anesthesia Complications and No Family Hx of Anesthesia Complications History of PONV No Hx of PONV and No Hx of Motion Sickness Social History Smoking Status: Never smoker Do You Dip or Chew Tobacco: No Hx Alcohol Use: Yes Alcohol type: beer and wine alcohol intake frequency: a few times a week Hx Substance Use: No substance use type: does not use Review of Systems Snoring when supine, denies witnessed apneas. Rare cough and sinus drainage since onset of viral illness 02/20/22, improving. Patient denies chest pain, shortness of breath, dyspnea on exertion, reflux, fever, chills, or palpitations. Physical Exam Vital Signs Vitals BP 137/78 P 60 TEMP 98.9 SP02 95% on RA RESP 17 Physical Full cervical extension range of motion without pain TMD 3.5 finger breadths Mallampati Score 3 Dentition: intact, sveeral caps/crowns, implants and bridges none in front; denies chipped or loose teeth Lungs: normal respiratory effort. Clear throughout to auscultation, no adventitious breath sounds Cardiac: regular rate and rhythm, no murmurs noted Carotid arteries: negative bruit bilat Lab Results Anesthesia Preop Results Results Anesthesia Widget: WBC 5.16 K/ul (4.8-10.8) 02/27/22 Hgb 14.4 g/dl (14.0-18.0) 02/27/22 Hct 42.4 % (40.1-51.0) 02/27/22 Plt 196 K/uL (130-400) 02/27/22 Na 137 mmol/L (136-145) 02/27/22 K 4.0 mmol/L (3.5-5.1) 02/27/22 Cl 101 mmol/L (98-107) 02/27/22 CO2 32 mmol/L (21-32) 02/27/22 BUN 14 mg/dl (6-23) 02/27/22 Creat 0.74 mg/dl (0.6-1.4) 02/27/22 Glucose Level 107 mg/dl (70-99(Fasting)) H 02/27/22 PT 10.8 Seconds (9.0-12.0) 02/27/22 PTT 27.9 Seconds (21.0-31.0) 02/27/22 INR 1.0 (0.9-1.1) 02/27/22 Blood Type A Positive 02/27/22 Antibody Screen NEGATIVE 02/27/22 Testing Electrocardiogram Date: 02/11/22 Sinus rhythm with occasional PVCs, rate 72 bpm Chest X-Ray Date: 02/27/22 No lines and tubes are seen. Cardiomegaly is noted. The lungs are clear. No evidence of pleural effusion or pneumothorax. IMPRESSION: No acute chest disease. Echocardiogram Date: 03/22/20 EF 55-59% Grade I diastolic dysfunction Mild cLVH normal LV wall motnion Mild tricuspid regurgitation Stress Test Date: 05/02/21 Exercise Normal LV wall motion METS 7 MPHR 105% EF 55-59% Mild aortic valve sclerosis, aortic stenosis is absent Grade I diastolic dysfunction COVID-19 Risk Screen Screening Information COVID-19 Screen Date: 02/27/22 Exposure 21 Days Family/Household +COVID Last 21 Days: No Exposure 10 Days Any COVID Exposure Last 10 Days: No Symptoms Last 10 Days Experienced COVID Sx Last 10 Days: Yes + COVID 0-90 Days COVID + in Last 0-90 Days: No
--- NOTE | 2022-04-19 10:06 | History and Physical Report ---
CHIEF COMPLAINT: Persistent and progressive right knee pain and discomfort. HISTORY OF PRESENT ILLNESS: The patient is a 77-year-old gentleman well known to me from multiple susan int replacements and issues in the past. We have replaced both of his hips and his left knee. Over the years, he has developed increased pain and discomfort in right knee. It has gotten worse over ti me. We treated him conservatively with injections, which have not helped him much at all recently. He limps and limps more as the day goes on. It is a constant global pain. He would like to have his knee fixed. Of note, he has talked to Dr. Schuler, his art consultant about this and he felt, he was fi ne to proceed with surgery. PAST MEDICAL HISTORY: 1. Hypertension. 2. History of SVT, followed by Dr. Schuler on metoprolol and in sinus rhythm currently. 3. Elevated cholesterol. 4. Basal cell skin cancer. PAST SURGICAL HISTORY: Include: 1. Left total knee replacement done on 07/26/2016. 2. Right total hip replacement done on 01/07/2013. 3. Left total hip replacement done on 04/26/2019. 4. Basal cell skin cancer removal. 5. Lumbar laminectomy. 6. Tonsillectomy. 7. Oral surgery. ALLERGIES: CODEINE. CURRENT MEDICATIONS: Include: 1. Amlodipine. 2. Ascorbic acid. 3. Atorvastatin. 4. Vitamin D3. 5. Hydrochlorothiazide. 6. Losartan. 7. Prednisolone. 8. Metoprolol. 9. Multivitamin. SOCIAL HISTORY: A 77-year-old male. Fairly active. Does not smoke. FAMILY HISTORY: Noncontributory. REVIEW OF SYSTEMS: Negative for diabetes. He does have a cardiac history which seems to be well con trolled. No history of DVT or PE. PHYSICAL EXAMINATION: GENERAL: Shows a pleasant middle-aged male. Looks to be in pretty decent health. HEENT: Benign. NECK: Supple. No lymphadenopathy. LUNGS: Clear to auscultation. HEART: Regular rate and rhythm. ABDOMEN: Soft, nontender, nondistended. EXTREMITIES: Grossly neurovascularly intact except as follows. Examination of the right knee reveals the patient ambulates with a bit of a limp. He has got varus a lignment to his knee. He has got bony hypertrophy medially. Mild diffuse edema. Range of motion is about 10 degrees short of full extension to 110-115 degrees of flexion. No instability. X-RAYS:. Four views of the right knee from previously reviewed. It shows advanced right knee DJD. He has got complete loss of medial joint space. He has got tibial femoral subluxation. He has got s ubchondral sclerosis. Left knee replacement looks to be in good position without problems. ASSESSMENT: A 77-year-old gentleman with a history of supraventricular tachycardia in the past and m ultiple joint replacements including both hips and his left knee with advanced right knee arthritis. He failed conservative treatment and would like to have his right knee replaced. PLAN: We will proceed with right total knee replacement. The risks and benefits of this procedure w ere explained to the patient and include but not limited to DVT, PE, , infection, neurological i njury, vascular injury, bleeding problem, pain, limited range of motion, stiffness, failure to reliev e symptoms, incomplete relief of symptoms, need for further surgery in the future, etc. The patient understands and desires to proceed. Informed consent was obtained. As far as discharge plans, he is planning to be discharged to home using [facility] in his 's assistance. Remember to take his metoprolol on the morning of surgery. We will see him back 2 weeks postop. Job ID: [id number]
[~2022-04-22 08:26] MED LIST changes: +ACETAMINOPHEN 500 MG TAB PO SCH; +BUPIVACAINE 0.5 % 5 MG/1 ML PF 10ML VIAL ONE; +BUPIVACAINE LIPOSOME/PF 266 MG, BUPIVACAINE/EPINEPHRINE 50 ML, SODIUM CHLORIDE 0.9% 30 ... INFIL SCH; -CEFAZOLIN 2000MG 2,000 MG/15 ML SYR IV SCH; +CeleBREX 200 MG CAP PO SCH; +FAMOTIDINE 20 MG TAB PO SCH; -LR 15ML/HR IV SCH; +LR 500ML BOLUS, THEN 15ML/HR IV SCH; +LR 60ML/HR IV SCH; +METOCLOPRAMIDE HCL 10 MG TABLET PO SCH; +ROPIVACAINE 0.5% 5 MG/ML 30 ML VIAL ONE; -SODIUM CHLORIDE 0.9% 1,000 ML IV SCH; +TRANEXAMIC ACID 1,000 MG **IV Intra-op IV SCH; +ceFAZolin 2000MG 2,000 MG/15 ML SYR IV SCH
--- NOTE | 2022-04-22 09:05 | History & Physical Bridge Note ---
Date of Service April 22, 2022 History & Physical Bridge Note I have examined the patient, reviewed the History & Physical and in the interval since the performance of the History & Physical I have noted the following changes of clinical significance: no changes noted
[2022-04-22] MEDS ORDERED: ePHEDrine sulfate 50 MG/ML AMP IV PRN (09:45)
[2022-04-22] MEDS ORDERED: fentaNYL citrate 100 MCG/2 ML VIAL IV PRN (09:45)
[2022-04-22] MEDS ORDERED: ONDANSETRON INJ 2 MG/ML 2 ML VIAL IV PRN ×2 (09:45→15:50)
[2022-04-22] MEDS ORDERED: ATROPINE SULFATE 0.1 MG/ML 10ML SYR IV PRN (09:45)
[2022-04-22] MEDS ORDERED: fentaNYL citrate 100 MCG/2 ML VIAL ONE (10:01)
[2022-04-22] MEDS ORDERED: MIDAZOLAM HCL 1 MG/ML 2ML VIAL ONE ×2 (10:01→11:08)
[2022-04-22] MEDS ORDERED: ONDANSETRON INJ 2 MG/ML 2 ML VIAL ONE (10:02)
[2022-04-22] MEDS ORDERED: DEXAMETHASONE SOD INJ 4 MG/ML VIAL ONE (10:02)
[2022-04-22] MEDS ORDERED: LIDOCAINE 2% MPF LOCAL 5 ML VIAL INFIL ONE (10:02)
[2022-04-22] MEDS ORDERED: PROPOFOL IV EMULSION 10 MG/ML 20 ML VIAL IV ONE (10:02)
[2022-04-22] MEDS ORDERED: SODIUM CHLORIDE 0.9% PF 50 ML VIAL ONE (11:23)
[2022-04-22] MEDS ORDERED: BUPIVACAINE/EPINEPHRINE 0.25% 1:200,000 30 ML VIAL ONE (11:23)
[2022-04-22] MEDS ORDERED: BUPIVACAINE LIPOSOME 1.3% 266 MG/20 ML VIAL ONE (11:23)
[2022-04-22] MEDS ORDERED: ePHEDrine sulfate 50 MG/ML SYR ONE (12:04)
[2022-04-22] MEDS ORDERED: PHENYLEPHRINE 100MCG/ML 5ML SYR ONE (12:04)
[2022-04-22] MEDS ORDERED: PHENYLEPHRINE HCL 10 MG/ML VIAL ONE (12:14)
--- NOTE | 2022-04-22 13:22 | Operative Report ---
PG Post Operative Report Pre & Post Diagnosis Operation Date: 04/22/22 10:40 Pre-Op Diagnosis: Right Knee Degenerative Joint Disease Post-Op Diagnosis: Right Knee Degenerative Joint Disease I identified the patient and participated in the time-out.: Yes Procedure Operation Date: 04/22/22 10:40 Actual Procedures p Right Total Knee Arthroplasty(Right) - Venkat Sotelo MD Surgeon Venkat Sotelo MD Cnc Lathe Programmer Thierry Stephen PA-C Estimated Blood Loss 50 Findings Consistent with Post-Op Diagnosis Operative findings were advanced right knee DJD. 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 He had a less severe changes in the patellofemoral and lateral compartment. Moderate-sized joint effusion. 10 to 15 degree flexion contracture. Specimens Right knee sent for pathology. Drains None Anesthesia Type Spinal MAC Complications none Disposition Accompanied Patient To Recovery: No Indications Patient is a 77-year-old fairly active gentleman with a long history of orthopedic joint problems. He said both hips replaced in his left knee in the past. Over the past several years he developed increased pain discomfort in his right knee. He failed conservative measures. He elected proceed with a right total knee replacement. Description of Procedure Operative implants consist of: 1 Biomet Vanguard size 75 right posterior stabilized femoral component. 2. Biomet size 79 tibial tray. 3. 10 mm posterior stabilized polyethylene insert. 4. 34 x 8 and half all Paller patella. The patient was taken to the operating, identified, and placed on the operating table supine position but all contact areas were appropriately padded. IV antibiotics arrived by anesthesia team. A spinal anesthetic and abductor canal block had been provided in the holding area. Yañez catheter was placed in sterile fashion. Right thigh tent was then placed in the right lower extremity was then prepped and draped in usual sterile fashion. The right leg was elevated and exsanguinated with the use of an Esmarch and the tourniquet was placed at 300 mmHg. An anterior approach of the right knee was then performed through a longitudinal incision centered over the patella. Sharp dissection was carried through subcutaneous tissue down the extensor mechanism. A medial parapatellar arthrotomy incision was made. Some subperiosteal dissection was carried out medially. The fat pad was resected from Neath patella tendon. Lateral patellofemoral ligament was released. The patella was subluxated laterally and the knee was flexed with the osteophytes taken off distal femur. The ACL and PCL were then released from distal femur the tibia subluxated anteriorly. The external tibial alignment jig was then placed in the interface the tibia and adjusted 16 mm medially. The proximal tibial cut was made to take minimum of a millimeter of bone from most deficient aspect of the medial tibial plateau. Some osteophytes taken off medial and posterior medially. Tibia sized to a size 79. Attention drawn the femur. The distal femur was entered with a sharp drill. Intramedullary canal was suction. Right 6 degree valgus cutting guide was placed. This femoral cutting block was pinned in place. Distal femoral cut was made to take an additional 3 mm of bone off distal femur. The femur was then sized to a size 75. The AP cutting block was pinned parallel to the epicondylar axis which was 3 degrees of external rotation. The anterior cut, anterior chamfer, posterior cut, posterior chamfer cuts were made. The box cutting guide was placed in just slight lateral and the box cut was made. The knee was flexed. The remnants of the medial and lateral menisci were excised. The osteophytes taken off the posterior aspect of femur. A trial femoral component was placed. Tibial tray was pinned in in maximum external rotation and the drill and stem punch used to create defect in proximal tibia for the tibial tray. The knee was then trialed and the 10 mm insert fit most appropriately. Attention drawn the patella. The patella is cleaned of all soft tissues. Patella thickness measured 23 mm in thickness was cut down to 14. Was sized to a size 34 patella. The lug holes were drilled for the 34 patella. Lateral osteophytes removed. Patella button was placed and the knee was taken through range of motion and tracked very nicely. The patella tracked well with no thumbs test. Attention drawn to placing permanent components. All trial components were removed. Bone plug was placed in the distal femur limit blood loss. Double batch Palacos G cement was mixed. A Biomet Vanguard size 75 right posterior stabilized femoral component, size 79 tibial tray, a 10 mm posterior stabilized polyethylene insert, and a 34 x 8 and half all Paller patella were then cemented in place. Knee was brought out into full extension till cement hardened. Final cement check was then performed. Pericapsular tissues were injected with total 100 cc of combination of 20 cc of Exparel, 30 cc normal saline, 50 cc of quarter percent Marcaine with epinephrine. Patient did receive 1 g tranexamic acid. The tourniquet was then let down for final tourniquet time of 58 minutes. Hemostasis assured with electrocautery. The wounds once again irrigated. The extensor mechanism then closed with combination 1 PDS suture #1 Vicryl suture in [id number] fashion. Extensor mechanism checked found to be intact with subcutaneous tissue then closed with 2 Dexon suture in a buried interrupted fashion skin was closed skin jeramie. Leg was then cleaned and dried and sterile dressing with Xeroform, 4 x 4's, sterile cast padding, Hugo bandage were applied. Patient then transferred to the recovery room in stable condition. Patient tolerated the procedure well and there were no complications. Thierry Stephen, my physician entry level assistant manager, was present for the entire procedure. His assistance was essential and required for appropriate patient positioning, prepping and draping, surgical exposure, performing the technical details of the operation, placement the implants, closure of the wound, and placement of the sterile bandage. I attest to the content of the Intraoperative Record and any orders documented therein. Any exceptions are noted below.
--- NOTE | 2022-04-22 13:37 | XRay Report ---
RIGHT KNEE 2 VIEWS History: Right total knee arthroplasty. Degenerative arthritis. Postop. FINDINGS: The patient is status post a right total knee arthroplasty. The hardware is intact. No frac ture or dislocation. Skin jeramie are in place. IMPRESSION: Right total knee arthroplasty. No evidence for hardware complication. ACT 112: Negative or not required by law. Electronically signed by: Felipe Bocanegra M.D. 04/22/2022 1:36 PM
--- NOTE | 2022-04-22 14:19 | Anesthesiology Progress Note ---
Date of Service April 22, 2022 Anesthesia Post Procedure Vital Signs Vital Signs: Temp Pulse Pulse Resp BP BP Pulse Ox 04/22/22 14:15 78 18 118/64 98 04/22/22 14:00 75 15 116/64 93 04/22/22 13:50 76 18 118/59 L 93 04/22/22 13:40 76 20 117/54 L 93 04/22/22 13:30 77 16 117/65 98 04/22/22 13:20 79 14 119/66 99 04/22/22 13:19 98.1 F 80 13 127/67 98 04/22/22 08:59 99.0 F 82 20 164/84 H 99 O2 Del Method O2 Flow Rate 04/22/22 14:15 Room Air 04/22/22 14:00 Room Air 04/22/22 13:50 Room Air 04/22/22 13:40 Room Air 04/22/22 13:30 Room Air 04/22/22 13:20 Oxymask 6 04/22/22 13:19 Oxymask 6 04/22/22 08:59 Room Air Transfer of Care Handoff Completed per policy Notes Mental Status: alert / awake / arousable and participated in evaluation Patient Amnestic to Procedure: Yes Nausea / Vomiting: adequately controlled Pain: adequately controlled Airway Patency, RR, SpO2: stable & adequate BP & HR: stable & adequate Hydration State: stable & adequate Neuraxial Anesthesia: was administered and sensory block is resolving Anesthetic Complications: no major complications apparent and Pt Satisfied with anesthetic care
[2022-04-22] MEDS ORDERED: bisacodyL 10 MG SUPP PR PRN (15:50)
[2022-04-22] MEDS ORDERED: NALOXONE HCL 0.4 MG/1 ML VIAL/CARP IV PRN (15:50)
[2022-04-22] MEDS ORDERED: NON-FORMULARY MEDICATION (Methylprednisolone 4 mg tablets,dose pack) PO PRN (15:50)
[2022-04-22] MEDS ORDERED: ALUMINUM/MAGNESIUM SUSP 30 ML UDC PO PRN (15:50)
[2022-04-22] MEDS ORDERED: HYDROmorphone INJ 0.5 MG/0.5 ML SYR IV PRN (15:50)
[2022-04-22] MEDS ORDERED: METOCLOPRAMIDE HCL INJ 5 MG/ML 2 ML VIAL IV PRN (15:50)
[2022-04-22] MEDS ORDERED: MAGNESIUM HYDROXIDE SUSP 30 ML UDC PO PRN (15:50)
[2022-04-22] MEDS ORDERED: oxyCODONE HCL IR 5 MG TAB (IMMEDIATE RELEASE) PO PRN (15:50)
[2022-04-22] MEDS: SODIUM CHLORIDE 0.9% 1000ML 1,000 ML IV SCH (16:37)
[2022-04-22] MEDS: KETOROLAC TROMETHAMINE 15 MG/ML VIAL IV SCH ×2 (16:38→21:35)
[2022-04-22] MEDS: ACETAMINOPHEN 500 MG TAB PO SCH ×2 (16:38→21:34)
[2022-04-22] MEDS: ceFAZolin 2000MG 2,000 MG/15 ML SYR IV SCH (18:36)
[2022-04-22] MEDS ORDERED: TRANEXAMIC ACID / 0.7% NACL 1,000 MG/100 ML BAG IV SCH (19:30)
[2022-04-22] MEDS ORDERED: DOCUSATE SODIUM/SENNA 50/8.6MG TAB PO SCH (21:00)
[2022-04-22] MEDS ORDERED: SENNA 8.6 MG TAB PO SCH (21:00)
[2022-04-22] MEDS: DOCUSATE SODIUM 100 MG CAP PO SCH (21:33)
[2022-04-22] MEDS: ASPIRIN 81 MG ECTAB PO SCH (21:34)
[2022-04-23] MEDS: SODIUM CHLORIDE 0.9% 1000ML 1,000 ML IV SCH (00:24)
[2022-04-23] MEDS: ceFAZolin 2000MG 2,000 MG/15 ML SYR IV SCH (03:31)
[2022-04-23] MEDS: KETOROLAC TROMETHAMINE 15 MG/ML VIAL IV SCH ×3 (03:31→14:56)
[2022-04-23] MEDS: ACETAMINOPHEN 500 MG TAB PO SCH ×2 (05:32→13:17)
[2022-04-23] MEDS ORDERED: dexAMETHasone 10 MG in SYRINGE 0 ML IV SCH (08:00)
[2022-04-23] MEDS: DOCUSATE SODIUM 100 MG CAP PO SCH (08:05)
[2022-04-23] MEDS: ASPIRIN 81 MG ECTAB PO SCH (08:05)
[2022-04-23 08:46] LABS: Hematocrit (blood only) 34.9 % (42.0-52.0); Hemoglobin 12.3 g/dl (14.0-18.0); Mean Corpuscular Hemoglobin 32.1 pg (25.0-34.0); Mean Corpuscular Hgb Conc 35.2 g/dL (32.0-36.0); Mean Corpuscular Volume 91.1 fL (80.0-100.0); Mean Platelet Volume 9.4 fL (9.4-12.4); Platelet Count 195 K/uL (130-400); RDW Standard Deviation 40.1 fL (36.4-46.3); Red Blood Count 3.83 M/uL (4.70-6.10); White Blood Count 14.78 K/ul (4.8-10.8)
[2022-04-23] MEDS ORDERED: ATORVASTATIN 20 MG TAB PO SCH (09:00)
[2022-04-23] MEDS ORDERED: CHOLECALCIFEROL 5,000 UNITS 125 MCG TAB PO SCH (09:00)
[2022-04-23] MEDS ORDERED: METOPROLOL SUCC 25MG EXT REL TAB PO SCH (09:00)
[2022-04-23] MEDS ORDERED: CHOLECALCIFEROL 1,000 UNITS 25 MCG TAB PO SCH (09:00)
[2022-04-23] MEDS ORDERED: MULTIVITAMIN TAB PO SCH (09:00)
[2022-04-23] MEDS ORDERED: amLODIPine BESYLATE 5 MG TAB PO SCH (09:00)
[2022-04-23] MEDS ORDERED: TAMSULOSIN HCL 0.4 MG CAP PO SCH (09:00)
[2022-04-23] MEDS ORDERED: ASCORBIC ACID 500 MG TAB PO SCH (09:00)
[2022-04-23] MEDS ORDERED: LOSARTAN POTASSIUM 25 MG TAB PO SCH (09:00)
[2022-04-23] MEDS ORDERED: NON-FORMULARY MEDICATION (Multivitamin Tablet) PO SCH (09:00)
[2022-04-23] MEDS ORDERED: hydroCHLOROthiazide 25 MG TAB PO SCH (09:00)
[2022-04-23 09:11] LABS: BUN Creatinine Ratio 23.4 (10-20); Calcium 8.4 mg/dl (8.5-10.1); Creatinine Clr Calc Pharmacy 96.4 ml/min; Est GFR (African American) 101.5 ml/min; Est GFR (Non-African American) 87.5 ml/min; Potassium 4.2 mmol/L (3.5-5.1)
--- NOTE | 2022-04-23 15:18 | Progress Notes ---
SUBJECTIVE: A 77-year-old gentleman, postoperative day 1 from right knee replacement. He is doing q uite well. Therapy went well. Pain controlled. He is hoping to go home. OBJECTIVE: VITAL SIGNS: Temperature is 36.5. Vital signs are stable. GENERAL: Shows a pleasant, elderly male. He is sitting up on his bedside chair and just waiting to go home. LUNGS: Clear to auscultation. HEART: Regular rate and rhythm. ABDOMEN: Soft, nontender, nondistended. EXTREMITIES: Grossly neurovascularly intact except as follows. Examination of the right knee reveals the dressing to be clean, dry and intact. He can do a straight leg raise. Range of motion 0-90. He is neurologically intact. LABORATORY DATA: Hemoglobin 12.3. Hematocrit 34.9. Electrolytes are stable. ASSESSMENT: A 77-year-old gentleman, postoperative day 1 from right knee replacement, doing quite we ll. Doing well in therapy. He is neurologically intact. He wants to go home. PLAN: 1. DVT prophylaxis includes thigh-high TEDs, SCDs, and aspirin twice a day. 2. PT, OT, weightbear as tolerated. Right total knee protocol. 3. Pain control, doing okay with current pain regimen. 4. Disposition: Plan to discharge to home with some home health today. Job ID: [id number]
--- NOTE | 2022-04-27 12:08 | Discharge Summary ---
Date of Service April 27, 2022 Discharge Data Procedures Performed Operation Date: 04/22/22 10:40 Actual Procedures p Right Total Knee Arthroplasty(Right) - Venkat Sotelo MD Hospital Course (1) Status post total right knee replacement: This is a 77 year old patient admitted on 04/22/22 and underwent total knee arthroplasty. He tolerated the procedure well and there were no complications. Transferred to the PACU post op and later to the orthopedic floor for further care. He was given ancef for antibiotic prophylaxis. He was also given LV stockings, SCDs, and aspirin for DVT prophylaxis. Hemoglobin, hematocrit, and vital signs were monitored during his hospital stay and remained stable. Did not require any blood transfusions. There were no complications during his hospital stay. By post op day #1 the patient was tolerating a heart healthy diet, pain was reasonably controlled with oral pain medicine, and he was participating in physical therapy. On post op day #1 the patient was discharged home and set up with home health care. He was given printed discharge instructions including prescriptions for extra strength tylenol, aspirin, cefadroxil, ketorolac, zofran, senokot, flomax,and hydromorphone. Continue physical therapy, weight bearing as tolerated. Continue LV stockings. Follow up approximately 2 weeks post op or sooner if there are problems or concerns. Coding Level of Care Code None Diagnoses Status post total right knee replacement Z96.651
== END 2022-04-23 18:03 | disposition home health service (06) ==
LOC: ASU 08:26 → 3W 08:26